=== PATIENT | female | born 1950 ===

== ENCOUNTER 2024-04-16 16:28 | Outpatient (REF) | payer MEDICARE, SELFPAY ==
[2024-04-16 13:48] LABS: Abs Immature Grans 0.13 10^3/uL; Absolute Basophil Count 0.06 10^3/uL; Absolute Eosinophil Count 0.21 10^3/uL; Absolute Lymphocyte Count 2.19 10^3/uL; Absolute Monocyte Count 0.76 10^3/uL; Absolute Neutrophil Count 10.51 10^3/uL; Basophils % 0.4 %; Eosinophils % 1.5 %; HGB 12.3 g/dL; Immature Grans % 0.9 %; Lymphocytes % 15.8 %; MCH 23.5 pg; MCHC 29.3 %; MCV 80 fL; MPV 9.2 fL; Monocytes % 5.5 %; Neutrophils % 75.9 %; RBC 5.24 10^6/uL; RDW 15.7 %; RDW-SD 45.1 fL; WBC 13.86 10^3/uL
[2024-04-16 13:51] LABS: Bilirubin Negative; Blood Negative; Clarity Clear; Glucose Negative; Ketones Negative; Leukocyte Esterase Negative; Nitrite Negative; Specific Gravity 1.015; pH 6.5
[2024-04-16 14:06] LABS: ALT 20 U/L; AST 15 U/L; Albumin 2.2 g/dL; Alkaline Phosphatase 173 U/L; Anion Gap 11.3 mmol/L; BUN 11 mg/dL; Bilirubin, Total 0.35 mg/dL; CO2 24.7 mmol/L; CREATININE 0.6 mg/dL; Chloride 98 mmol/L; Glucose 167 mg/dL; Magnesium 2.2 mg/dL; Potassium 5.4 mmol/L; Sodium 134 mmol/L; TSH 1.99 uIU/mL (0.36-3.74); Total Protein 6.9 g/dL
[2024-04-16 14:13] LABS: Platelet Count 826 10^3/uL
[2024-04-16 14:14] LABS: Diff Comment PLT Morph Reviewed; RBC Morphology Normal
== END 2024-04-16 16:29 | disposition home or self-care (01) ==
LOC: LBN 16:28
PROVIDERS: Visit Provider Nurse Practitioner Family
DX: C79.9 Secondary malignant neoplasm of unspecified site (principal); E83.52 Hypercalcemia; E83.42 Hypomagnesemia
CPT/HCPCS: 80053; 81003; 83735; 84443; 85025

== ENCOUNTER 2024-04-20 15:30 | Inpatient (IN) | payer MEDICARE, SELFPAY ==
[2024-04-20] VITALS (60 sets, daily range): BP systolic 117–160; BP diastolic 57–122; PULSE 88–126; RESP 15–33; TEMP 36–36.5; O2SAT 84–94
--- NOTE | 2024-04-20 15:45 | RT.EKG_ITS ---
APPROVED REPORT Exam: Resting ECG Reason for Exam: weakness Patient Location: E HR:120 bpm ECG Measurements Heart Rate 120 AXIS ME 116 P 59 QRSd 73 QRS 30 QT 286 T 48 QTc 404 Conclusion Sinus tachycardia...rate> 99 Ventricular premature complex...V complex w/ short R-R interval Low voltage, precordial leads...precordial leads <1.0mV no ST segment or T wave abnormalities to suggest occlusive NV
--- NOTE | 2024-04-20 16:15 | ED.GENADUL_ITS ---
Discharge Plan Discharge Details Chief Complaint: GenMedical Admit Date/Time: 04/20/24 22:08 Admit Provider: Jensen Dutton Attending Provider: Jensen Dutton Primary Care Provider: Unknown,Unknown ED Provider: Eva Starr General Date/Time Provider Initiated Documentation: 04/20/24 15:36 . [facility] Narrative: Dell is a 73year old female who presents to the emergency department today for evaluation of Shortness of breath on exertion x 2 weeks and nausea/vomiting x 4 days. Shortness of breath is accompanied by left-sided chest pain that has moved from her anterior rib cage down to her diaphragm area. She is accompanied by her daughter/caregiver Jeimy. Denies fever/chills, headache, dizziness, congestion, sore throat, cough, abdominal pain, change in bowel or bladder function, black/tarry stools. She is not on anticoagulation. 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 Former smoker. Daughter reports that she has had tachycardia for the last 3 weeks. She has follow-up with her care team on Saturday. Physical exam reassuring. Patient is alert and oriented, no acute distress. Easy work of breathing, lung sounds clear bilaterally. No cough. Tachycardia noted, heart rate in the 110s. Moist mucous membranes. Abdomen is soft, nondistended, nontender to palpation with normoactive bowel sounds. Radial pulses intact. D/dx includes but is not limited to: Occult infection such as pneumonia, metastases of known cancer, COPD, PE, gastritis, cardiac arrhythmia, viral illness such as COVID-19, electrolyte imbalance, dehydration. ACS less likely based on timeline. I independently interpreted the following tests: EKG reassuring, sinus tachycardia rate 120, no changes c/w acute ischemie. d-dimer very elevated at 1751. BNP slightly elevated at 462. CMP, lipase, and serial troponins (9, 10, 6) reassuring. CT remarkable for large L pleural effusion, bony mets to ribs and R iliac bone. While in the emergency department, Dell received her home pain medications for comfort. Consulted with Dr Rose , [facility] [place] [place] oncology. Recommends thoracentesis or pleuravax for comfort, with f/u on Sat as scheduled. Presented case to hospitalist Dr Dutton and Dr Hampton, [facility] general surgeon. They are agreeable with plan to admit for procedure tomorrow (likely 12:30 or 1 pm). Discussed findings and plan of care with patient and her daughter Jeimy; they a re agreeable Related Data Home Medications ?Medication ?Instructions ?Recorded ?Confirmed acetaminophen 325 mg tablet 325 mg PO Q8H PRN PRN 04/20/24 04/20/24 (Aminofen) albuterol sulfate 90 mcg/actuation 2 inh inhalation Q6H 04/20/24 04/20/24 breath activated powder inhaler calcium 600 mg (as 1 cap PO BID 04/20/24 04/20/24 carbonate)-vitamin D3 5 mcg (200 unit) capsule (Calcium 600 + D(3)) famotidine 40 mg tablet 40 mg PO QHS 04/20/24 04/20/24 fluticasone propionate 50 2 spray intranasal DAILY PRN 04/20/24 04/20/24 mcg/actuation nasal spray,suspension (24 Hour Allergy Relief) hydrocodone 5 mg-acetaminophen 325 1 tab PO BID 04/20/24 04/20/24 mg tablet magnesium oxide 400 mg PO BID 04/20/24 04/20/24 umeclidinium 62.5 mcg/actuation 1 inh inhalation DAILY 04/20/24 04/20/24 blister powder for inhalation (Incruse Ellipta) Allergies Allergy/AdvReac Type Severity Reaction Status Date / Time No Known Allergies Allergy Unverified 04/20/24 15:48 General Stated Complaint: GenMedical LINN: 3 Review of Systems Narrative: see HPI Exam Const General: cooperative, comfortable, no acute distress and well developed Nutritional Appearance: thin Orientation: alert and oriented x3 Chest Chest: normal inspection of the chest Resp Effort & Inspection: normal respiratory effort and able to speak in complete sentences Auscultation: clear to auscultation bilaterally Cardio Rate: tachycardic Rhythm: regular rhythm GI Inspection: normal to inspection Palpation: soft and nontender Course Vital Signs Vital signs: Vital Signs Temperature 36.5 C 04/20/24 15:36 Pulse 122 04/20/24 15:36 Respiratory Rate 25 04/20/24 15:36 Blood Pressure 117/67 04/20/24 15:36 Pulse Oximetry 93 04/20/24 15:36 Temperature 36.5 C 04/20/24 15:45 Temperature Source Temporal Artery Scan 04/20/24 15:45 Pulse 118 04/20/24 15:46 Pulse 117 04/20/24 15:46 Respiratory Rate 26 04/20/24 15:46 Respiratory Effort Normal, Non-Labored 04/20/24 15:50 Respiratory Depth Normal 04/20/24 15:50 Respiratory Pattern Normal 04/20/24 15:50 Blood Pressure 125/65 04/20/24 15:46 Blood Pressure Mean 87 04/20/24 15:46 Blood Pressure Position Supine 04/20/24 15:45 Pulse Oximetry 93 04/20/24 15:46 Oxygen Delivery Method Room Air 04/20/24 15:45 Oxygen Flow Rate 0 04/20/24 15:36 Pain Level 0 04/20/24 15:45 Medical Decision Making Quality:SDOH Health Related Social Needs: No Data to Display PFSH All Active Problems (Updated 04/20/24 @ 21:59 by Jensen Dutton) COPD (chronic obstructive pulmonary disease) (Chronic) Pleural effusion, left (Acute) 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 (Chronic) Medical History (Updated 04/20/24 @ 21:59 by Jensen Dutton) Tobacco abuse, in remission Social History Smoking/Tobacco Use Status: Former Tobacco Use Smoking risk assessment performed?: Yes Alcohol Intake: former Substance use type: does not use
[2024-04-20 16:37] LABS: HCT 37.1 %; HGB 11.2 g/dL; MCH 23.3 pg; MCHC 30.2 %; MCV 77 fL; RDW 15.7 %; RDW-SD 43.3 fL; WBC 14.99 10^3/uL
[2024-04-20 17:00] LABS: ALT 13 U/L; AST 15 U/L; Albumin 1.8 g/dL; Alkaline Phosphatase 130 U/L; Anion Gap 9.5 mmol/L; BUN 11 mg/dL; Bilirubin, Total 0.33 mg/dL; CO2 22.5 mmol/L; CREATININE 0.4 mg/dL; Calcium 10.1 mg/dL; Chloride 101 mmol/L; Glucose 119 mg/dL; NT-proBNP 462 pg/mL (<300); Potassium 4.3 mmol/L; Sodium 133 mmol/L; Total Protein 6.8 g/dL; Troponin I 9 ng/L
[2024-04-20 17:01] LABS: Lipase 44 U/L
[2024-04-20 17:09] LABS: D-Dimer 1751 ng/mlFEU
[2024-04-20 17:10] LABS: Platelet Count 795 10^3/uL
[2024-04-20 17:11] LABS: Absolute Basophil Count 0.15 10^3/uL; Absolute Lymphocyte Count 1.95 10^3/uL; Absolute Neutrophil Count 11.09 10^3/uL; Diff Comment Manual Differential
[2024-04-20 17:12] LABS: Hypochromasia 1+
[2024-04-20 17:35] LABS: COVID-19 PCR Negative; Influenza A PCR Negative; Influenza B PCR Negative; RSV PCR Negative; Source Nasopharynx
[2024-04-20] MEDS: Acetaminophen 325 MG TAB PO ×2 (17:52→20:30)
[2024-04-20 18:06] LABS: Troponin I 10 ng/L
[2024-04-20] MEDS: Omnipaque 350 MG/ML 100 ML BTL IJ (18:37)
[2024-04-20] MEDS: Normal Saline - Diluent 50 ML VIAL IJ (18:39)
--- NOTE | 2024-04-20 18:40 | DI.CT_ITS ---
Exam(s) CT CHEST PE ABD PELVIS W EXAM: CT CHEST PE ABD PELVIS W CLINICAL HISTORY: SOB with known cancer. not anticoagulated, N/V. TECHNIQUE: Imaging Protocol: Axial CT angiography was performed with multi-slice acquisition and mu lti-planar and/or 3D reconstructions. Computer aided detection (CAD) was utilized. CONTRAST MATERIAL: Intravenous: Omnipaque 350contrast volume:85 mL COMPARISON: No exams were available for comparison FINDINGS: The examination is limited due to patient motion artifact. CHEST: Tracheobronchial tree: Patent where visualized. No evidence of bronchiectasis. Pulmonary parenchyma: Centrilobular emphysematous changes are seen in the lungs. There are pulmonary nodule seen in the lungs. The largest is in the right upper lobe and measures 4 mm. There are nume caitlin pleural based masses seen in the left hemithorax. There is a large left pleural effusion which appears somewhat loculated. There is complete collapse of the left lower lobe. There are destructiv e changes seen of multiple left ribs including what is probably a pathologic fracture of the posterol ateral aspect of the left 7th rib. There is significant destructive changes seen at the anterior asp ect of the left 6th rib. Pulmonary Arteries: No evidence of filling defect to suggest pulmonary emboli. Mediastinum and Brittny: No dominant adenopathy or fluid collection. The esophagus is unremarkable. Ther e is a small hiatal hernia. Visualized thyroid gland: Unremarkable. Pleura: There is no right pleural effusion or right pneumothorax. No left pneumothorax. Heart: The heart is not dilated. No coronary artery calcifications are seen. No pericardial effusion. Aorta: Thoracic aorta non-dilated. No evidence of dissection. Atherosclerotic calcification is prese nt. Bones: Age-appropriate degenerative changes are present. Please see the above section under pulmonar y parenchyma. Soft tissues: Unremarkable. ABDOMEN: Liver: Normal density. No measurable mass. Portal, Superior Mesenteric, and Splenic Veins: Unremarkable. Gallbladder and Biliary Tract: No radiodense calculus or dilation. Pancreas: Normal density, no abnormal calcifications or inflammatory process. Spleen: Normal. Adrenals: There is nodularity of the adrenal glands bilaterally. Kidneys: Normal size, contour and axis. No radiodense stones or obstructive uropathy. There are simpl e cysts seen in the left kidney. There is a heterogeneously enhancing mass in the upper pole of the right kidney measuring 7.5 transverse by 7.5 AP by 7.0 cm craniocaudad. This is consistent with the patient's known renal carcinoma. Abdominal Aorta: Abdominal portion non-dilated. Atherosclerotic calcification is present. There is m arked stenosis of the right common iliac artery. Bowel: No obstruction or bowel wall thickening. Appendix is unremarkable. There is a moderate amount of stool in the colon. Peritoneal Cavity: No ascites, collection or mesenteric inflammatory response. No free air. Lymph Nodes: Within normal limits. Bones: Within normal limits for the patient's age. There is of bony slightly sclerotic metastasis in volving the lateral aspect of the right iliac bone. Soft Tissues: Unremarkable. PELVIS: Bladder: Symmetric distention, no gross wall thickening. Reproductive Organs: Unremarkable as visualized. Lymph Nodes: Within normal limits. Bones: Within normal limits. IMPRESSION: 1. No evidence pulmonary embolism, thoracic aortic dissection or aneurysm. 2. Extensive metastatic disease seen in the chest predominantly involving the left hemithorax. 3. Large left pleural effusion which show some loculation. 4. No acute abdominal or pelvic process. 5. 7.5 cm heterogeneously enhancing right renal mass consistent with renal carcinoma. 6. Osseous metastatic disease involving the right iliac bone. RADIATION DOSE DELIVERED: 429.08mGy.cm Total DLP DATA REPOSITORY: All CT scans at this facility are submitted to the National Radiology Data Registry (NRDR) Dose Index Registry (DIR) with the [employer] (ACR). RADIATION OPTIMIZATION: All CT scans at this facility use at least one of these dose optimization te chniques: automated exposure control; mA and/or kV adjustment per patient size (includes targeted exa ms where dose is matched to clinical indication); or iterative reconstruction.
[2024-04-20 19:51] LABS: Troponin I 6 ng/L (<or=51)
[2024-04-20] MEDS: HYDROcodone 5/Acetaminophen 325 TAB PO (20:23)
[2024-04-20] MEDS: Lidocaine 5% Patch 1 PATCH TP (20:31)
[2024-04-20] MEDS: Ondansetron 4 MG/2 ML VIAL IVP (20:58)
[2024-04-20 21:00] LABS: BE (Venous) 0 mmol/L (-2-3); HCO3 (Venous) 24 mmol/L (23-28); O2 Sat (Venous) 91 %; TCO2 (Venous) 22 mmol/L (24-29); pCO2 (Venous) 36 mmHg (41-51); pH (Venous) 7.43 (7.31-7.41); pO2 (Venous) 59 mmHg
--- NOTE | 2024-04-20 21:51 | W.PM.HP.N ---
Date of service: 04/20/24 Time of Service: 21:52 Assessment and Plan Assessment and plan (1) Pleural effusion, left: Start date: 04/20/24 Status: Acute Assessment and plan: This is a 73-year-old lady with recent diagnosis of stage IV renal cell carcinoma of the right kidney with metastases to lung and bone. She presents with increasing shortness of breath and large left pleural effusion. Surgery has been consulted and [facility] oncology is agreeable for patient to stay at this hospital with therapeutic thoracentesis planned for the morning. She will be n.p.o. after midnight. Symptom control overnight. Patient is a full code. Prognosis is poor. (2) 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: Status: Chronic Assessment and plan: Recent diagnosis but now being evaluated for treatment options with [facility] oncology. Complications of metastases to lung causing large left pleural effusion. (3) COPD (chronic obstructive pulmonary disease): Status: Chronic Assessment and plan: Stable and now complicated by pleural effusion with patient oxygenating well at rest. Continue inhaler therapy. O2 supplementation as needed. Qualifiers: COPD type: chronic bronchitis Chronic bronchitis type: simple Qualified Code(s): J41.0 - Simple chronic bronchitis History of Present Illness History of Present Illness Chief Complaint: Fast heart rate with dyspnea upon exertion, nausea with vomiting Narrative: This is a 73-year-old female patient who just recently moved up to the [facility] in [place] to be with her daughter having a recent diagnosis of stage IV renal cell carcinoma metastatic to lung and bone. This diagnosis was in March 2024 about 1 month ago and she was initially seen at [facility] and now is following at [facility] as per her PCPs advice. She is seeing [facility] oncology for intake and evaluation April 22, 2024. The patient presented to the ED with increasing shortness of breath and discomfort over her left chest and was very uncomfortable at the time I examined her. She was restless and having pain on oral hydrocodone at home. In the ED, evaluation revealed a large left pleural effusion with right renal mass and osseous as well as pulmonary metastases. There was no evidence of PE. Patient has had decreased appetite and had 7 pound weight loss already being very thin. She is having nausea. She also has with some pain with deep inspiration of the left side. She is not having retrosternal chest pain or radiation of her pain. She denies fever or cough. Dr. Hampton, general surgery was consulted and [facility] oncology was in agreement for the patient to be admitted overnight for observation and pain control with plan thoracentesis will be therapeutic to be performed in the morning. Patient hopefully will go home and follow-up as scheduled with [facility] oncology. She is a full code. Review of Systems Narrative: 13 point review of systems otherwise unrevealing or stable. PFSH All Active Problems (Updated 04/20/24 @ 21:59 by Jensen Dutton) COPD (chronic obstructive pulmonary disease) (Chronic) Pleural effusion, left (Acute) 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 (Chronic) Medical History (Updated 04/20/24 @ 21:59 by Jensen Dutton) Tobacco abuse, in remission Social History Smoking/Tobacco Use Status: Former Tobacco Use Smoking risk assessment performed?: Yes Alcohol Intake: former Substance use type: does not use Meds Allergies and Home Medications Allergies Allergy/AdvReac Type Severity Reaction Status Date / Time No Known Allergies Allergy Unverified 04/20/24 15:48 Home Medications ?Medication ?Instructions ?Recorded ?Confirmed ?Type acetaminophen 325 mg tablet 325 mg PO Q8H PRN PRN 04/20/24 04/20/24 History (Aminofen) albuterol sulfate 90 mcg/actuation 2 inh inhalation Q6H 04/20/24 04/20/24 History breath activated powder inhaler calcium 600 mg (as 1 cap PO BID 04/20/24 04/20/24 History carbonate)-vitamin D3 5 mcg (200 unit) capsule (Calcium 600 + D(3)) famotidine 40 mg tablet 40 mg PO QHS 04/20/24 04/20/24 History fluticasone propionate 50 2 spray intranasal DAILY PRN 04/20/24 04/20/24 History mcg/actuation nasal spray,suspension (24 Hour Allergy Relief) hydrocodone 5 mg-acetaminophen 325 1 tab PO BID 04/20/24 04/20/24 History mg tablet magnesium oxide 400 mg PO BID 04/20/24 04/20/24 History umeclidinium 62.5 mcg/actuation 1 inh inhalation DAILY 04/20/24 04/20/24 History blister powder for inhalation (Incruse Ellipta) Exam Narrative Exam Narrative: General: Patient appears appropriate for age, thin and almost cachectic with poor eye contact and in obvious pain. She is leaning onto her right side. She is tachypneic with any movement. She is alert and oriented x 3. In moderate distress as described. HEENT: Normocephalic, eyes with pupils equal and reactive to light symmetrically, extraocular movement intact and sclera anicteric. Oropharynx with dry mucosa. Neck: Supple without JVD. Back: Kyphotic without CVA tenderness. Lungs: Marked decreased aeration of the left hemithorax with bronchovesicular breath sounds and fair aeration over the right. No focalizing rales or rhonchi. No expiratory wheeze. No increased expiratory phase. Breast: Exam deferred. Heart: Regular rate and rhythm with no appreciable murmur or gallop. Abdomen: Scaphoid contour, soft and nontender to palpation with no palpable hepatosplenomegaly. No guarding or rebound. Bowel sounds positive all quadrants. Genitalia/rectal: Exam deferred. Skin: Normal color, rough texture with decreased turgor. Warm and dry. Extremities: Without clubbing, cyanosis or pitting edema. Fair capillary refill. Neuro: Cranial nerves II to XII grossly intact, no focalizing motor deficits or tremor. Psych: Flattened affect with depressed mood. Patient is anxious and in pain. No abnormal thought processes. Remote and recent memory grossly intact. Results Imaging Imaging Studies: CT CHEST PE ABD PELVIS W EXAM: CT CHEST PE ABD PELVIS W CLINICAL HISTORY: SOB with known cancer. not anticoagulated, N/V. COMPARISON: No exams were available for comparison FINDINGS: The examination is limited due to patient motion artifact. CHEST: Tracheobronchial tree: Patent where visualized. No evidence of bronchiectasis. Pulmonary parenchyma: Centrilobular emphysematous changes are seen in the lungs. There are pulmonary nodule seen in the lungs. The largest is in the right upper lobe and measures 4 mm. There are numerous pleural based masses seen in the left hemithorax. There is a large left pleural effusion which appears somewhat loculated. There is complete collapse of the left lower lobe. There are destructive changes seen of multiple left ribs including what is probably a pathologic fracture of the posterolateral aspect of the left 7th rib. There is significant destructive changes seen at the anterior aspect of the left 6th rib. Pulmonary Arteries: No evidence of filling defect to suggest pulmonary emboli. Mediastinum and Brittny: No dominant adenopathy or fluid collection. The esophagus is unremarkable. There is a small hiatal hernia. Visualized thyroid gland: Unremarkable. Pleura: There is no right pleural effusion or right pneumothorax. No left pneumothorax. Heart: The heart is not dilated. No coronary artery calcifications are seen. No pericardial effusion. Aorta: Thoracic aorta non-dilated. No evidence of dissection. Atherosclerotic calcification is present. Bones: Age-appropriate degenerative changes are present. Please see the above section under pulmonary parenchyma. Soft tissues: Unremarkable. ABDOMEN: Liver: Normal density. No measurable mass. Portal, Superior Mesenteric, and Splenic Veins: Unremarkable. Gallbladder and Biliary Tract: No radiodense calculus or dilation. Pancreas: Normal density, no abnormal calcifications or inflammatory process. Spleen: Normal. Adrenals: There is nodularity of the adrenal glands bilaterally. Kidneys: Normal size, contour and axis. No radiodense stones or obstructive uropathy. There are simple cysts seen in the left kidney. There is a heterogeneously enhancing mass in the upper pole of the right kidney measuring 7.5 transverse by 7.5 AP by 7.0 cm craniocaudad. This is consistent with the patient's known renal carcinoma. Abdominal Aorta: Abdominal portion non-dilated. Atherosclerotic calcification is present. There is marked stenosis of the right common iliac artery. Bowel: No obstruction or bowel wall thickening. Appendix is unremarkable. There is a moderate amount of stool in the colon. Peritoneal Cavity: No ascites, collection or mesenteric inflammatory response. No free air. Lymph Nodes: Within normal limits. Bones: Within normal limits for the patient's age. There is of bony slightly sclerotic metastasis involving the lateral aspect of the right iliac bone. Soft Tissues: Unremarkable. PELVIS: Bladder: Symmetric distention, no gross wall thickening. Reproductive Organs: Unremarkable as visualized. Lymph Nodes: Within normal limits. Bones: Within normal limits. IMPRESSION: 1. No evidence pulmonary embolism, thoracic aortic dissection or aneurysm. 2. Extensive metastatic disease seen in the chest predominantly involving the left hemithorax. 3. Large left pleural effusion which show some loculation. 4. No acute abdominal or pelvic process. 5. 7.5 cm heterogeneously enhancing right renal mass consistent with renal carcinoma. 6. Osseous metastatic disease involving the right iliac bone. Labs 04/21/24 06:15 04/21/24 06:15 Labs: Laboratory Results - last 24 hr 04/20/24 04/20/24 04/20/24 16:22 16:52 17:40 WBC 14.99 RBC 4.80 Hgb 11.2 Hct 37.1 MCV 77 MCH 23.3 MCHC 30.2 RDW 15.7 Plt Count 795 MPV Immature Gran % See Differential Neutrophils % 74.0 Lymphocytes % 13.0 Monocytes % 12.0 Eosinophils % 0.0 Basophils % 1.0 Nucleated RBC % 0.0 Absolute Neutrophils 11.09 Absolute Lymphocytes 1.95 Absolute Monocytes 1.80 Absolute Eosinophils 0.00 Absolute Basophils 0.15 RBC Morphology See Below Hypochromasia 1+ D-Dimer 1751 VBG pH VBG pCO2 VBG pO2 VBG HCO3 VBG Total CO2 VBG O2 Saturation VBG Base Excess Sodium 133 Potassium 4.3 Chloride 101 Carbon Dioxide 22.5 Anion Gap 9.5 BUN 11 Creatinine 0.4 Est GFR (CKD-EPI 2020) Not Applicable Glucose 119 Calcium 10.1 Magnesium 2.0 Total Bilirubin 0.33 AST 15 ALT 13 Alkaline Phosphatase 130 Troponin I 9 10 NT-Pro-B Natriuret Pep 462 H Total Protein 6.8 Albumin 1.8 Lipase 44 COVID-19 Source Nasopharynx SARS-CoV-2 (PCR) Negative Influenza Type A (PCR) Negative Influenza Type B (PCR) Negative RSV (PCR) Negative 04/20/24 04/20/24 19:20 20:50 WBC RBC Hgb Hct MCV MCH MCHC RDW Plt Count MPV Immature Gran % Neutrophils % Lymphocytes % Monocytes % Eosinophils % Basophils % Nucleated RBC % Absolute Neutrophils Absolute Lymphocytes Absolute Monocytes Absolute Eosinophils Absolute Basophils RBC Morphology Hypochromasia D-Dimer VBG pH 7.43 H VBG pCO2 36 L VBG pO2 59 VBG HCO3 24 VBG Total CO2 22 L VBG O2 Saturation 91 VBG Base Excess 0 Sodium Potassium Chloride Carbon Dioxide Anion Gap BUN Creatinine Est GFR (CKD-EPI 2020) Glucose Calcium Magnesium Total Bilirubin AST ALT Alkaline Phosphatase Troponin I 6 NT-Pro-B Natriuret Pep Total Protein Albumin Lipase COVID-19 Source SARS-CoV-2 (PCR) Influenza Type A (PCR) Influenza Type B (PCR) RSV (PCR) Last Vital Signs Temp 36.5 C 04/20/24 15:45 Pulse 115 H 04/20/24 18:01 Resp 31 H 04/20/24 20:20 BP 152/94 H 04/20/24 20:59 Pulse Ox 92 04/20/24 20:20 Time Spent Time spent with Patient: >75 minutes Time was spent: preparing to see the patient(eg.review tests), obtaining and/or reviewing separately otained hiistory, ordering medications,tests, procedures, referring, communicating with other health housekeeper caregiver, indepentently interpreting results, counseling the patient and care coordination
[2024-04-21] VITALS (17 sets, daily range): BP systolic 102–135; BP diastolic 59–78; PULSE 106–129; RESP 2–28; TEMP 34.9–36.7; O2SAT 90–98
--- NOTE | 2024-04-21 | DI.RAD_ITS ---
Exam(s) XR PORTABLE CHEST AP POST LINE EXAM: XR PORTABLE CHEST AP POST LINE CLINICAL HISTORY: s/p thoro TECHNIQUE: 2D digital imaging was performed. COMPARISON: CT CT CHEST PE ABD PELVIS W from 04/20/2024 FINDINGS: LUNGS: The right lung is clear. The patient is status post left thoracentesis with significant decrea se in size of the previously noted left pleural effusion. No pneumothorax. Large masses are again n oted along the left chest wall. HEART: Normal size. AORTA: Normal diameter. BONES: Unremarkable for age. Soft tissues: Unremarkable. IMPRESSION: Significant decrease in size of left pleural effusion status post thoracentesis. No pneumothorax. L arge left-sided pleural based masses. DATA REPOSITORY: RADIATION DOSE DELIVERED:
--- NOTE | 2024-04-21 00:08 | W.PC.ACHO ---
Registration Status: Primary Language: Preferred Language: ED Information & Data Chief Complaint GenMedical 04/20/24 16:20 Triage Note Patient presented to the ER 04/20/24 15:36 via Sim with SOB for months now and bone pain. Patient has a history of large basal cell carcinoma with metastasis. Patient state her pcp insisted that her coming to the ER. Patient reported decreased appetite and nausea since probably the ending of February Medical / Surgical History (Last Updated 04/20/24 @ 21:57 by Jensen Dutton) Tobacco abuse, in remission Most Recent Vital Signs Temperature 36 C L 04/20/24 23:26 Temperature Source Temporal Artery Scan 04/20/24 15:45 Pulse 118 H 04/20/24 23:26 Pulse Rhythm Regular 04/20/24 23:26 Pulse 122 H 04/20/24 21:50 Respiratory Rate 15 04/20/24 23:26 Respiratory Effort Short of Breath 04/20/24 23:26 Respiratory Depth Normal 04/20/24 23:26 Respiratory Pattern Normal 04/20/24 23:26 Blood Pressure 133/83 04/20/24 23:26 Blood Pressure Mean 97 04/20/24 21:45 Blood Pressure Position Supine 04/20/24 15:45 Pulse Oximetry 93 04/20/24 23:26 Oxygen Delivery Method Room Air 04/20/24 23:26 Oxygen Flow Rate 0 04/20/24 23:26 Pain Level 6 04/20/24 23:26 Allergies No Known Allergies Allergy (Unverified 04/20/24 15:48) Precautions Isolation Standard precaution 04/20/24 15:46 Active Medications Generic Name Dose Route Start Last Admin Trade Name Lilian PRN Reason Stop Dose Admin Famotidine 40 mg 04/20/24 23:45 04/21/24 00:04 Famotidine 20 Mg Tab PO Not Given HS KEE Sodium Chloride 0 ml 04/20/24 20:00 04/20/24 23:43 Normal Saline Flush 10 Ml Syr IVP Not Given BID KEE IV IV Catheter Type [Right Peripheral IV Antecubital] IV Catheter Type [Right Peripheral IV Forearm] IV Catheter Gauge [Right 18 Antecubital] IV Catheter Gauge [Right 20 Forearm] Diet Orders Category Date Time Status Nothing Per Oral [DIET] Nutrition 04/21/24 Breakfast Active Regular/Normal [DIET] Nutrition 04/20/24 Dinner Active Diagnostics 1104/20/24 04/20/24 Range/Units 05:35 20:50 19:20 WBC Pending 10^3/uL RBC Pending 10^6/uL Hgb Pending g/dL Hct Pending % MCV Pending fL MCH Pending pg MCHC Pending % RDW Pending % Plt Count Pending 10^3/uL MPV Pending fL Immature Gran % Neutrophils % % Lymphocytes % % Monocytes % % Eosinophils % % Basophils % % Nucleated RBC % % Absolute Neutrophils 10^3/uL Absolute Lymphocytes 10^3/uL Absolute Monocytes 10^3/uL Absolute Eosinophils 10^3/uL Absolute Basophils 10^3/uL RBC Morphology Hypochromasia D-Dimer ng/mlFEU VBG pH 7.43 H (7.31-7.41) VBG pCO2 36 L (41-51) mmHg VBG pO2 59 mmHg VBG HCO3 24 (23-28) mmol/L VBG Total CO2 22 L (24-29) mmol/L VBG O2 Saturation 91 % VBG Base Excess 0 (-2-3) mmol/L Sodium Pending mmol/L Potassium Pending mmol/L Chloride Pending mmol/L Carbon Dioxide Pending mmol/L Anion Gap Pending mmol/L BUN Pending mg/dL Creatinine Pending mg/dL Est GFR (CKD-EPI 2020) Pending Glucose Pending mg/dL Calcium Pending mg/dL Magnesium Pending mg/dL Total Bilirubin Pending mg/dL AST Pending U/L ALT Pending U/L Alkaline Phosphatase Pending U/L Troponin I 6 ng/L NT-Pro-B Natriuret Pep (<300) pg/mL Total Protein Pending g/dL Albumin Pending g/dL Lipase U/L COVID-19 Source SARS-CoV-2 (PCR) Influenza Type A (PCR) Influenza Type B (PCR) RSV (PCR) 04/20/24 04/20/24 04/20/24 Range/Units 17:40 16:52 16:22 WBC 14.99 10^3/uL RBC 4.80 10^6/uL Hgb 11.2 g/dL Hct 37.1 % MCV 77 fL MCH 23.3 pg MCHC 30.2 % RDW 15.7 % Plt Count 795 10^3/uL MPV fL Immature Gran % See Differential Neutrophils % 74.0 % Lymphocytes % 13.0 % Monocytes % 12.0 % Eosinophils % 0.0 % Basophils % 1.0 % Nucleated RBC % 0.0 % Absolute Neutrophils 11.09 10^3/uL Absolute Lymphocytes 1.95 10^3/uL Absolute Monocytes 1.80 10^3/uL Absolute Eosinophils 0.00 10^3/uL Absolute Basophils 0.15 10^3/uL RBC Morphology See Below Hypochromasia 1+ D-Dimer 1751 ng/mlFEU VBG pH (7.31-7.41) VBG pCO2 (41-51) mmHg VBG pO2 mmHg VBG HCO3 (23-28) mmol/L VBG Total CO2 (24-29) mmol/L VBG O2 Saturation % VBG Base Excess (-2-3) mmol/L Sodium 133 mmol/L Potassium 4.3 mmol/L Chloride 101 mmol/L Carbon Dioxide 22.5 mmol/L Anion Gap 9.5 mmol/L BUN 11 mg/dL Creatinine 0.4 mg/dL Est GFR (CKD-EPI 2020) Not Applicable Glucose 119 mg/dL Calcium 10.1 mg/dL Magnesium 2.0 mg/dL Total Bilirubin 0.33 mg/dL AST 15 U/L ALT 13 U/L Alkaline Phosphatase 130 U/L Troponin I 10 9 ng/L NT-Pro-B Natriuret Pep 462 H (<300) pg/mL Total Protein 6.8 g/dL Albumin 1.8 g/dL Lipase 44 U/L COVID-19 Source Nasopharynx SARS-CoV-2 (PCR) Negative Influenza Type A (PCR) Negative Influenza Type B (PCR) Negative RSV (PCR) Negative Intake and Output - 24 Hour Total 04/20/24 15:17 thru 04/20/24 23:26 Weight 45 kg Falls Risk Assessment History of Falls Previous History 04/20/24 23:26 Contributing Factors Unstable 04/20/24 23:26 Ambulatory Aids Independent 04/20/24 23:26 Tubes/Lines None 04/20/24 23:26 Gait Evaluation No gait disturbance 04/20/24 23:26 Cognition No cognitive impairment 04/20/24 23:26 Fall Total Score 18 04/20/24 23:26 Level of Risk Standard/Low Risk 04/20/24 23:26 Problems (Last Updated 04/20/24 @ 21:57 by Jensen Dutton) COPD (chronic obstructive pulmonary disease) (Chronic) Pleural effusion, left (Acute) 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 (Chronic) v v v v v v v v v Sending and/or Receiving Nurses: Please use comment section below to note any information pertinent to the patient hand-off not included above. Information / Comments: Pt is a+ox3, on tele, SR tach. 18 g RT AC. received zofran for nausea. Report received from: Renata Giron RN
[2024-04-21] MEDS: Acetaminophen 325 MG TAB PO ×2 (03:12→08:24)
[2024-04-21] MEDS: MORPHine 2 MG/ML SYR IVP ×2 (03:25→12:40)
[2024-04-21] MEDS: Normal Saline Flush 10 ML SYR IVP ×4 (03:25→20:19)
[2024-04-21] MEDS: Albuterol 2.5 MG/3 ML INH SOLN VIAL UPD (03:26)
[2024-04-21 06:28] LABS: HCT 34.2 % (36.0-46.0); HGB 10.1 g/dL (11.2-15.7); MCHC 29.5 % (32.0-36.0); MCV 78 fL (80-95); MPV 8.5 fL (8.0-11.0); Platelet Count 696 10^3/uL (130-400); RDW 15.6 % (11.7-14.6); RDW-SD 44.1 fL; WBC 13.21 10^3/uL (4.4-10.8)
[2024-04-21 06:49] LABS: ALT 13 U/L (14-59); AST 12 U/L (15-37); Albumin 1.6 g/dL (3.4-5.0); Alkaline Phosphatase 121 U/L (46-116); Anion Gap 6.6 mmol/L (3-11); BUN 9 mg/dL (7-18); CO2 25.4 mmol/L (21.0-32.0); CREATININE 0.4 mg/dL (0.55-1.02); Calcium 9.4 mg/dL (8.5-10.1); Chloride 102 mmol/L (98-107); Estimated GFR 105.09 (mL/min/1.73m2); Glucose 106 mg/dL (74-106); Magnesium 2.2 mg/dL (1.8-2.4); Potassium 4.4 mmol/L (3.5-5.1); Sodium 134 mmol/L (136-145)
[2024-04-21] MEDS: Albuterol/Ipratropium 3 ML UPD VIAL UPD ×2 (07:58→20:24)
[2024-04-21] MEDS: Umeclidinium 7 CAP INHALER IH (07:58)
[2024-04-21] MEDS: Magnesium Oxide 400 MG TAB PO ×2 (08:22→20:17)
[2024-04-21] MEDS: HYDROcodone 5/Acetaminophen 325 TAB PO ×3 (08:23→20:17)
[2024-04-21] MEDS: Calcium 600mg/Vit D 200U TAB 1 TAB PO ×2 (08:23→20:17)
[2024-04-21] MEDS: Ondansetron 4 MG/2 ML VIAL IVP ×2 (08:25→12:39)
[2024-04-21] MEDS: Patch Removal 1 EACH TP (08:31)
--- NOTE | 2024-04-21 08:51 | PDOC.CMIN ---
Date of service: 04/21/24 Time of Service: 08:51 Care Management Initial Assmt Initial Assessment Reason for Hospitalization: left pleural effusion Functional Status/Living Situation Patient Presentation: Dell was admitted yesterday due to increasing shortness of breath on exertion x 2 weeks, and nausea/vomiting x 4 days. She has a history of stage IV kidney cancer with mets to the lungs. She was found to have a large left pleural effusion. Dell was lying in bed, talking with her daughter, Jeimy, who was present, when CM met with her today. She looks frail, but was very pleasant and engaged well. Dell has been living with her daughter for a few months, moved from [place]. For the last few days, Dell has been sleeping on the living room couch, because she has been too weak to climb the stairs to the second floor where her bedroom and also a bathroom with a shower are located. She does have HH PT and RN, and says she has been working on her strength. Dell may have a thoracentesis today, but the plan is still unclear. Dell was able to eat some lunch today, which was an improvement over the last few days. Dell [place] [facility] [place] Both she and Jeimy feel it is imperative to be at that appt. CM notified the provider of this. Town of Residence: [place] Resides with: Child (Daughter Jeimy and her ) Significant Other/Family: Local (Jeimy and another daughter in [place]) Caregiver/Guardian: Jeimy Natural Supports: Jeimy Employment Status: Retired Instrumental Activities of Daily Living (ADLs): Requires support with Groceries and Transportation (has been independent until very recently) Physical Functioning/Mobility Assistive Device: none Advance Directives Advance Directives: Do you have an Advance Directive: N 04/20/24 23:23 AD On File at [facility]: N 04/20/24 15:40 Date Asked 04/20/24 04/20/24 15:40 AD Date Reviewed COLST On File at [facility] COLST Date Scanned Code Status Resuscitation Status Full Code Insurance Coverage/Financial Issues Insurance: [facility] Medicare replacement Care Team Visit Care Team Role Provider Type Unknown Unknown Primary Care Provider STAFF PHYSICIAN Kandi Hampton, DO Other Providers OSTEOPATHIC DOCTOR Eva Matthews Emergency Provider NURSE PRACTITIONER Jensen Dutton Admit Provider NON[facility] STAFF PHYSICIAN Attending Provider Discharge Potential Discharge Needs: PCP F/U Appt and Other ([place] [facility] Anticipated Barriers to Discharge: None Identified Patient/Family Education Needs: Review discharge instructions, discuss Ask Me Three Transportation: Private vehicle Plan: Anticipate that Dell will be discharged home with her daughter. She will f/u with oncology on 04/22 as previously scheduled and continue per her plan of care. CM will continue to follow. PFSH All Active Problems (Updated 04/20/24 @ 21:59 by Jensen Dutton) COPD (chronic obstructive pulmonary disease) (Chronic) Pleural effusion, left (Acute) 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 (Chronic) Medical History (Updated 04/20/24 @ 21:59 by Jensen Dutton) Tobacco abuse, in remission Social History Smoking/Tobacco Use Status: Former Tobacco Use Smoking risk assessment performed?: Yes Alcohol Intake: former Substance use type: does not use Readmission Within the Past 30 Days Yes or No: No SDOH(Care Management) Screening Will the Patient Participate in the Screening?: Yes Do you worry about having a steady place to live?: no In the past 12 months, have you had to go without electric, gas, oil or water in your home?: no Have you or anyone in your house had to go without enough food to eat?: no Has lack of transportation kept you from medical appointments or from doing things needed for daily living?: no Has anyone in your support network made you feel unsafe for any reason?: no Anticipated HH Services Anticipated HH Services at [facility], PT and RN.
[2024-04-21 13:36] LABS: Lab Add On Test DONE
[2024-04-21 13:41] LABS: Absolute Lymphocyte Count 1.07 10^3/uL (1.2-3.4); Absolute Monocyte Count 1.15 10^3/uL (0.1-0.8); Absolute Neutrophil Count 10.66 10^3/uL (1.2-6.7); Basophils % 0.8 %; Eosinophils % 0.8 %; Immature Grans % 0.8 %; Lymphocytes % 8.1 %; Monocytes % 8.7 %; Neutrophils % 80.8 %
[2024-04-21] MEDS: Sodium Bicarbonate 50 MEQ/50 ML VIAL (14:03)
--- NOTE | 2024-04-21 14:16 | PAPNONF_PTH ---
PATIENT: Dell Alcala LOC: U#:[id number] AGE/SX: 73/F ROOM: RE04/20/[address]: Jensen Dutton : 1950 BED: A DIS: 04/22/2024 SPEC #: [id number] RECD: 04/21/24 14:52 STATUS: MILLA REQ #: [id number] TORI: 04/21/24 14:[address]: Jensen Dutton [facility] Cytology RECD BY: Vanessa Chan ENTERED: 04/21/24 14:54 SP TYPE: MICHELL OG DR: Kandi Hampton Christopher Tissues: 1 - BODY FLUID CYTO(NOT S/U/N/EM)[facility] Procedures: BODY FLUID CYTO(NOT SPU/UR/NIP/ENDOM)[facility] Comments: [id number] (TOTAL VOLUME = 60 ml, SENT FRESH) (REFRIGERATED)
--- NOTE | 2024-04-21 14:46 | PHA.REVIEW2 ---
Pharmacy Admission Review Admission Clinical Review Admission Pharmacy Review: Pleural effusion, left (Acute) No Known Allergies Allergy (Unverified 04/20/24 15:48) Resuscitation Status Full Code Height 5 ft Weight 42.2 kg Pharmacy Admission Review Renal Dosing Renal Dosing: BUN 9 mg/dL (7-18) 04/21/24 06:15 Creatinine 0.4 mg/dL (0.55-1.02) L 04/21/24 06:15 Medications needing adjustments: Intervened (crcl = 33) List of meds needing interventions: adjusted famotidine from 40 mg daily to 20 mg daily Anticoagulation Anticoagulation: Hgb 10.1 g/dL (11.2-15.7) L 04/21/24 06:15 Hct 34.2 % (36.0-46.0) L 04/21/24 06:15 Plt Count 696 10^3/uL (130-400) H 04/21/24 06:15 Creatinine 0.4 mg/dL (0.55-1.02) L 04/21/24 06:15 DVT Prophylaxis: Reviewed (SCDs) Therapeutic Anticoagulation: N/A Opiate Usage Evaluate Pain Scale/Pains Meds: Reviewed (morphine 2 mg IV q2h prn ordered for air hunger, has used 2 doses since last night) Scheduled Bowel Reg ordered if on Opiates?: No (prn) Relevant Labs Relevant Labs: Sodium 134 mmol/L (136-145) L 04/21/24 06:15 Potassium 4.4 mmol/L (3.5-5.1) 04/21/24 06:15 Chloride 102 mmol/L (98-107) 04/21/24 06:15 Magnesium 2.2 mg/dL (1.8-2.4) 04/21/24 06:15 Electrolytes, C-Reactive P, ESR: Reviewed (albumin = 1.6) DM Control DM Control: Reviewed (no diabetes diagnosis) Cardiac Review Cardiac Review: Troponin I 6 ng/L (<or=51) 04/20/24 19:20 NT-Pro-B Natriuret Pep 462 pg/mL (<300) H 04/20/24 16:22 BP, HR, EF%: Reviewed QTc Review QTc: Reviewed (QTc = 404 04/21/24) List meds needing interventions: n/a IV to PO Switch IV Medications: Reviewed Home Meds Home Med List reviewed: Reviewed Relevent Home Meds Not ordered & why?: all meds on home med list ordered but no external fill history to confirm list Current Meds Current Medication Order Review: Reviewed
[2024-04-21 14:54] LABS: pH Body Fluid 7
[2024-04-21 14:57] LABS: Source: Pleural
[2024-04-21 15:06] LABS: Clarity Cloudy; Source Pleural
--- NOTE | 2024-04-21 15:27 | CHAPLAIN ---
Dell was in bed and her daughter, Maryanne, was visiting with her. I explained my role and offered support. Dell was pleasant and not interested in further conversation with me. 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 According to Care Management notes, Dell moved to the area recently, from [place], to live with Maryanne. Tomorrow she has an appointment at [facility] [place] with oncology that she very much wants to keep.
[2024-04-21 16:19] LABS: Mononuclear Cells 49 %; Polynuclear Cells 51 %
[2024-04-21 16:28] LABS: Nucleated Cells 217 uL (0)
--- NOTE | 2024-04-21 16:52 | W.PM.PROGNOT ---
Date of Service Date of service: 04/21/24 Time of Service: 16:52 Assessment and Plan Assessment and plan (1) Pleural effusion, left: Start date: 04/20/24 Status: Acute Assessment and plan: As per chest CT results: Pulmonary parenchyma: Centrilobular emphysematous changes are seen in the lungs. There are pulmonary nodule seen in the lungs. The largest is in the right upper lobe and measures 4 mm. There are numerous pleural based masses seen in the left hemithorax. There is a large left pleural effusion which appears somewhat loculated. There is complete collapse of the left lower lobe. There are destructive changes seen of multiple left ribs including what is probably a pathologic fracture of the posterolateral aspect of the left 7th rib. There is significant destructive changes seen at the anterior aspect of the left 6th rib. Surgical consult ordered and ongoing Thoracentesis completed today with improvement in breathing -Possibility for outpatient Pleurx placement Fluid sample sent to pathology (2) 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: Status: Chronic Assessment and plan: Oncology appointment scheduled for 04/22/2024 Upon discussion with patient and family they wish to stay overnight and be discharged from the hospital to go to this appointment in the morning Will observe overnight Pain management with hydrocodone as per home med regimen with additional as needed IV morphine. Patient has bowel management medicine ordered Intermittent nausea treated with ondansetron as needed Palliative care consultation ordered (3) COPD (chronic obstructive pulmonary disease): Status: Chronic Assessment and plan: Continue home medicine regimen with umeclidinium Discussed with Dr. Victoria Qualifiers: COPD type: chronic bronchitis Chronic bronchitis type: simple Qualified Code(s): J41.0 - Simple chronic bronchitis Subjective Subjective Patient reports: still having pain, voiding w/o difficulty, bowel movement, nausea, shortness of breath and afebrile; denies diarrhea, blood in stool or vomiting Exam Narrative Exam Narrative: Ill appearing female patient, looking older than age and cachectic. Alert and oriented to self and place; nonfocal S1-S2 no murmur, positive radial and pedal pulses Diminished breath sounds to left lung field up to axillary line, clear breath sounds to right upper lobes with diminished bases Abdomen is scaphoid, nontender, bowel sounds are present No CVA tenderness Moves all 4 extremities but general weakness noticed Objective Last Vital Signs Temp 36.4 C L 04/21/24 16:09 Pulse 124 H 11/12/24 16:09 Resp 20 04/21/24 16:09 BP 135/73 04/21/24 16:09 Pulse Ox 93 04/21/24 16:09 Laboratory Results - last 24 hr 04/20/24 04/20/24 04/20/24 16:22 16:52 17:40 WBC 14.99 RBC 4.80 Hgb 11.2 Hct 37.1 MCV 77 MCH 23.3 MCHC 30.2 RDW 15.7 Plt Count 795 MPV Immature Gran % See Differential Neutrophils % 74.0 Lymphocytes % 13.0 Monocytes % 12.0 Eosinophils % 0.0 Basophils % 1.0 Nucleated RBC % 0.0 Absolute Neutrophils 11.09 Absolute Lymphocytes 1.95 Absolute Monocytes 1.80 Absolute Eosinophils 0.00 Absolute Basophils 0.15 RBC Morphology See Below Hypochromasia 1+ D-Dimer 1751 VBG pH VBG pCO2 VBG pO2 VBG HCO3 VBG Total CO2 VBG O2 Saturation VBG Base Excess Sodium 133 Potassium 4.3 Chloride 101 Carbon Dioxide 22.5 Anion Gap 9.5 BUN 11 Creatinine 0.4 Est GFR (CKD-EPI 2020) Not Applicable Glucose 119 Calcium 10.1 Magnesium 2.0 Total Bilirubin 0.33 AST 15 ALT 13 Alkaline Phosphatase 130 Troponin I 9 10 NT-Pro-B Natriuret Pep 462 H Total Protein 6.8 Albumin 1.8 Lipase 44 Fluid Source Fluid Color Fluid Clarity Fluid pH Fluid WBC Fld Polynuclear WBCs % Fluid Mononuclear Cell COVID-19 Source Nasopharynx SARS-CoV-2 (PCR) Negative Influenza Type A (PCR) Negative Influenza Type B (PCR) Negative RSV (PCR) Negative Add-On Test Request 04/20/24 04/20/24 04/21/24 19:20 20:50 06:15 WBC 13.21 H RBC 4.40 Hgb 10.1 L Hct 34.2 L MCV 78 L MCH 23.0 L MCHC 29.5 L RDW 15.6 H Plt Count 696 H MPV 8.5 Immature Gran % 0.8 Neutrophils % 80.8 Lymphocytes % 8.1 Monocytes % 8.7 Eosinophils % 0.8 Basophils % 0.8 Nucleated RBC % Absolute Neutrophils 10.66 H Absolute Lymphocytes 1.07 L Absolute Monocytes 1.15 H Absolute Eosinophils 0.10 Absolute Basophils 0.10 RBC Morphology Hypochromasia D-Dimer VBG pH 7.43 H VBG pCO2 36 L VBG pO2 59 VBG HCO3 24 VBG Total CO2 22 L VBG O2 Saturation 91 VBG Base Excess 0 Sodium 134 L Potassium 4.4 Chloride 102 Carbon Dioxide 25.4 Anion Gap 6.6 BUN 9 Creatinine 0.4 L Est GFR (CKD-EPI 2020) 105.09 Glucose 106 Calcium 9.4 Magnesium 2.2 Total Bilirubin 0.30 AST 12 L ALT 13 L Alkaline Phosphatase 121 H Troponin I 6 NT-Pro-B Natriuret Pep Total Protein 6.0 L Albumin 1.6 L Lipase Fluid Source Fluid Color Fluid Clarity Fluid pH Fluid WBC Fld Polynuclear WBCs % Fluid Mononuclear Cell COVID-19 Source SARS-CoV-2 (PCR) Influenza Type A (PCR) Influenza Type B (PCR) RSV (PCR) Add-On Test Request 04/21/24 04/21/24 04/21/24 13:36 14:16 14:16 WBC RBC Hgb Hct MCV MCH MCHC RDW Plt Count MPV Immature Gran % Neutrophils % Lymphocytes % Monocytes % Eosinophils % Basophils % Nucleated RBC % Absolute Neutrophils Absolute Lymphocytes Absolute Monocytes Absolute Eosinophils Absolute Basophils RBC Morphology Hypochromasia D-Dimer VBG pH VBG pCO2 VBG pO2 VBG HCO3 VBG Total CO2 VBG O2 Saturation VBG Base Excess Sodium Potassium Chloride Carbon Dioxide Anion Gap BUN Creatinine Est GFR (CKD-EPI 2020) Glucose Calcium Magnesium Total Bilirubin AST ALT Alkaline Phosphatase Troponin I NT-Pro-B Natriuret Pep Total Protein Albumin Lipase Fluid Source Pleural Pleural Fluid Color Red Fluid Clarity Cloudy Fluid pH 7 Fluid WBC 217 Fld Polynuclear WBCs % 51 Fluid Mononuclear Cell 49 COVID-19 Source SARS-CoV-2 (PCR) Influenza Type A (PCR) Influenza Type B (PCR) RSV (PCR) Add-On Test Request DONE Time Spent with Patient Time Spent with Patient: >50 minutes Time was spent: preparing to see the patient(eg.review tests), obtaining and/or reviewing separately otained hiistory, ordering medications,tests, procedures, referring, communicating with other health home care physical therapist, indepentently interpreting results, counseling the patient and care coordination
--- NOTE | 2024-04-21 16:58 | W.PM.OP ---
Date of service: 04/21/24 Time of Service: 16:58 Operative Note Operative Note DATE OF PROCEDURE: 04/21/24 PRE-OP DIAGNOSIS: Malignant pleural effusion/stage IV metastatic renal cell cancer/pathologic rib fracture-left POST-OP DIAGNOSIS: same PROCEDURE: Thoracentesis SURGEON: Kandi Hampton ANESTHESIA TYPE: Local By Surgeon Refer to Anesthesia Record ESTIMATED BLOOD LOSS: 1 PATHOLOGY: other COMPLICATIONS: None Patient was transported to: same day Patient's condition: stable Procedure Description: REPORT OF OPERATION Operative Note Operative Note Pt is here today for thoracentesis for symptoms of shortness of breath.? Chest x-ray was reviewed prior to beginning the procedure.? Informed consent was obtained explaining risks and benefits of the procedure, including but not limited to bleeding, infection, pneumothorax, recurrence, complications of anesthesia, and other unforetold complications. Timeout is performed prior to beginning the procedure. ? PROCEDURE:? The patient is brought to the procedure room and placed in the seated position.? Ultrasound is used to localize the pocket on the left chest.? The area is marked and then prepped and draped in the usual sterile fashion using a ChloraPrep scrub solution.? 15 cc's of 1% Lidocaine is used to anesthetize the T10 interspace. ? The small chandler is made with a #11 blade.? The needle and catheter is then inserted over the top of the rib, aspirating as it is inserted.? The needle is then removed.? The catheter is then hooked up to the Vacutainer system and 2200 cc's of bloodyfluid is evacuated.? The catheter is removed; pressure is held.? Sterile compression dressing is applied. ? Checks x-ray shows resolution of the fluid and no pneumothorax.
--- NOTE | 2024-04-21 17:01 | W.SURGCON ---
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 She has a consult at oncology clinic at [facility] tomorrow. Given her functional status I do not think she is a good candidate for chemo. It would be palliative anyway. I recommend that she transfer to hospice. (2) Pleural effusion, left: Status: Deleted Assessment and plan: Centesis today. Risks of procedure include but not limited to: Bleeding/infection/pneumothorax/damage to lung/reaction to medication, not other on for pulm complications 45 mins spent in direct pt care and 45 in non face to face time (3) COPD (chronic obstructive pulmonary disease): Status: Chronic Qualifiers: COPD type: chronic bronchitis Chronic bronchitis type: simple Qualified Code(s): J41.0 - Simple chronic bronchitis (4) Tobacco abuse, in remission: (5) Malignant pleural effusion: Status: Acute (6) Pathologic fracture: Status: Acute (7) Protein-calorie malnutrition, severe: Status: Acute Assessment and plan: Nutrition consult (8) Ambulatory dysfunction: Status: Acute Assessment and plan: PT consult Patient is going to need home health and home PT (9) Cancer cachexia: Status: Acute History of Present Illness Narrative: Patient was admitted to [facility] through the ER on 04/20 complaining of shortness of breath and chest pain. Patient has a known history of renal cell cancer that was diagnosed back in [facility] on March 10. She has not started any chemo. It is unclear why. She has a outpatient hematology clinic consult scheduled with Dr. Bush tomorrow to discuss starting chemo. From reviewing her [facility] chart, she has not seen oncology previously and not She has not started treatment. Given the severity of her disease and with a recurrent malignant effusion and fracture of her lung, I do not think chemo is going to buy her any time. Also given her nutritional and functional state, I do not think she would be able to tolerate chemo. It would be my recommendation that she go into hospice. I do not think patient has a good understanding of her disease process. Patient is unable to give really any other clear history and most of the information is taken from the chart. She has an extensive history of COPD. She has a history of weakness/protein calorie malnutrition/impaired mobility. She still smokes. We have very little medical information on file and patient is not able to supply us with much information. CT 04/20/24 racheobronchial tree: Patent where visualized. No evidence of bronchiectasis. Pulmonary parenchyma: Centrilobular emphysematous changes are seen in the lungs. There are pulmonary nodule seen in the lungs. The largest is in the right upper lobe and measures 4 mm. There are numerous pleural based masses seen in the left hemithorax. There is a large left pleural effusion which appears somewhat loculated. There is complete collapse of the left lower lobe. There are destructive changes seen of multiple left ribs including what is probably a pathologic fracture of the posterolateral aspect of the left 7th rib. There is significant destructive changes seen at the anterior aspect of the left 6th rib. Pulmonary Arteries: No evidence of filling defect to suggest pulmonary emboli. Mediastinum and Brittny: No dominant adenopathy or fluid collection. The esophagus is unremarkable. There is a small hiatal hernia. Visualized thyroid gland: Unremarkable. Pleura: There is no right pleural effusion or right pneumothorax. No left pneumothorax. Heart: The heart is not dilated. No coronary artery calcifications are seen. No pericardial effusion. Aorta: Thoracic aorta non-dilated. No evidence of dissection. Atherosclerotic calcification is present. Bones: Age-appropriate degenerative changes are present. Please see the above section under pulmonary parenchyma. Soft tissues: Unremarkable. ABDOMEN: Liver: Normal density. No measurable mass. Portal, Superior Mesenteric, and Splenic Veins: Unremarkable. Gallbladder and Biliary Tract: No radiodense calculus or dilation. Pancreas: Normal density, no abnormal calcifications or inflammatory process. Spleen: Normal. Adrenals: There is nodularity of the adrenal glands bilaterally. Kidneys: Normal size, contour and axis. No radiodense stones or obstructive uropathy. There are simple cysts seen in the left kidney. There is a heterogeneously enhancing mass in the upper pole of the right kidney measuring 7.5 transverse by 7.5 AP by 7.0 cm craniocaudad. This is consistent with the patient's known renal carcinoma. Abdominal Aorta: Abdominal portion non-dilated. Atherosclerotic calcification is present. There is marked stenosis of the right common iliac artery. Bowel: No obstruction or bowel wall thickening. Appendix is unremarkable. There is a moderate amount of stool in the colon. Peritoneal Cavity: No ascites, collection or mesenteric inflammatory response. No free air. Lymph Nodes: Within normal limits. Bones: Within normal limits for the patient's age. There is of bony slightly sclerotic metastasis involving the lateral aspect of the right iliac bone. Soft Tissues: Unremarkable. PELVIS: Bladder: Symmetric distention, no gross wall thickening. Reproductive Organs: Unremarkable as visualized. Lymph Nodes: Within normal limits. Bones: Within normal limits. IMPRESSION: 1. No evidence pulmonary embolism, thoracic aortic dissection or aneurysm. 2. Extensive metastatic disease seen in the chest predominantly involving the left hemithorax. 3. Large left pleural effusion which show some loculation. 4. No acute abdominal or pelvic process. 5. 7.5 cm heterogeneously enhancing right renal mass consistent with renal carcinoma. 6. Osseous metastatic disease involving the right iliac bone. Review of Systems Unobtainable due to (Patient is not aware of much of her past medical history.) PFSH All Active Problems (Updated 04/21/24 @ 17:24 by Kandi Hampton DO) Cancer cachexia (Acute) Ambulatory dysfunction (Acute) Protein-calorie malnutrition, severe (Acute) Pathologic fracture (Acute) Left ribs Malignant pleural effusion (Acute) COPD (chronic obstructive pulmonary disease) (Chronic) 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 (Chronic) Stage IV. Mets to the lung and bones Medical History (Updated 04/21/24 @ 17:24 by Kandi Hampton DO) Tobacco abuse, in remission Social History Smoking/Tobacco Use Status: Former Tobacco Use Smoking risk assessment performed?: Yes Alcohol Intake: former Substance use type: does not use Exam Const General: frail appearing and ill appearing Nutritional Appearance: cachectic, malnourished and underweight Orientation: alert, awake and oriented to person Resp Effort & Inspection: normal respiratory effort and able to speak in complete sentences Other: No breath sounds left chest. Palpable rib fractures Cardio Rate: regular rate Rhythm: regular rhythm GI Other: Abdomen is soft and nontender Extrem General: muscle atrophy Results Last Vital Signs Temp 36.7 C 04/21/24 16:57 Pulse 126 H 04/21/24 16:57 Resp 20 04/21/24 16:57 BP 110/67 04/21/24 16:57 Pulse Ox 93 04/21/24 16:57 Labs 04/21/24 06:15 04/21/24 06:15 Labs: Laboratory Results - last 24 hr 04/20/24 04/20/24 04/20/24 16:22 16:52 17:40 WBC 14.99 RBC 4.80 Hgb 11.2 Hct 37.1 MCV 77 MCH 23.3 MCHC 30.2 RDW 15.7 Plt Count 795 MPV Immature Gran % See Differential Neutrophils % 74.0 Lymphocytes % 13.0 Monocytes % 12.0 Eosinophils % 0.0 Basophils % 1.0 Nucleated RBC % 0.0 Absolute Neutrophils 11.09 Absolute Lymphocytes 1.95 Absolute Monocytes 1.80 Absolute Eosinophils 0.00 Absolute Basophils 0.15 RBC Morphology See Below Hypochromasia 1+ D-Dimer 1751 VBG pH VBG pCO2 VBG pO2 VBG HCO3 VBG Total CO2 VBG O2 Saturation VBG Base Excess Sodium 133 Potassium 4.3 Chloride 101 Carbon Dioxide 22.5 Anion Gap 9.5 BUN 11 Creatinine 0.4 Est GFR (CKD-EPI 2020) Not Applicable Glucose 119 Calcium 10.1 Magnesium 2.0 Total Bilirubin 0.33 AST 15 ALT 13 Alkaline Phosphatase 130 Troponin I 9 10 NT-Pro-B Natriuret Pep 462 H Total Protein 6.8 Albumin 1.8 Lipase 44 Fluid Source Fluid Color Fluid Clarity Fluid pH Fluid WBC Fld Polynuclear WBCs % Fluid Mononuclear Cell COVID-19 Source Nasopharynx SARS-CoV-2 (PCR) Negative Influenza Type A (PCR) Negative Influenza Type B (PCR) Negative RSV (PCR) Negative Add-On Test Request 04/20/24 04/20/24 04/21/24 19:20 20:50 06:15 WBC 13.21 H RBC 4.40 Hgb 10.1 L Hct 34.2 L MCV 78 L MCH 23.0 L MCHC 29.5 L RDW 15.6 H Plt Count 696 H MPV 8.5 Immature Gran % 0.8 Neutrophils % 80.8 Lymphocytes % 8.1 Monocytes % 8.7 Eosinophils % 0.8 Basophils % 0.8 Nucleated RBC % Absolute Neutrophils 10.66 H Absolute Lymphocytes 1.07 L Absolute Monocytes 1.15 H Absolute Eosinophils 0.10 Absolute Basophils 0.10 RBC Morphology Hypochromasia D-Dimer VBG pH 7.43 H VBG pCO2 36 L VBG pO2 59 VBG HCO3 24 VBG Total CO2 22 L VBG O2 Saturation 91 VBG Base Excess 0 Sodium 134 L Potassium 4.4 Chloride 102 Carbon Dioxide 25.4 Anion Gap 6.6 BUN 9 Creatinine 0.4 L Est GFR (CKD-EPI 2020) 105.09 Glucose 106 Calcium 9.4 Magnesium 2.2 Total Bilirubin 0.30 AST 12 L ALT 13 L Alkaline Phosphatase 121 H Troponin I 6 NT-Pro-B Natriuret Pep Total Protein 6.0 L Albumin 1.6 L Lipase Fluid Source Fluid Color Fluid Clarity Fluid pH Fluid WBC Fld Polynuclear WBCs % Fluid Mononuclear Cell COVID-19 Source SARS-CoV-2 (PCR) Influenza Type A (PCR) Influenza Type B (PCR) RSV (PCR) Add-On Test Request 04/21/24 04/21/24 04/21/24 13:36 14:16 14:16 WBC RBC Hgb Hct MCV MCH MCHC RDW Plt Count MPV Immature Gran % Neutrophils % Lymphocytes % Monocytes % Eosinophils % Basophils % Nucleated RBC % Absolute Neutrophils Absolute Lymphocytes Absolute Monocytes Absolute Eosinophils Absolute Basophils RBC Morphology Hypochromasia D-Dimer VBG pH VBG pCO2 VBG pO2 VBG HCO3 VBG Total CO2 VBG O2 Saturation VBG Base Excess Sodium Potassium Chloride Carbon Dioxide Anion Gap BUN Creatinine Est GFR (CKD-EPI 2020) Glucose Calcium Magnesium Total Bilirubin AST ALT Alkaline Phosphatase Troponin I NT-Pro-B Natriuret Pep Total Protein Albumin Lipase Fluid Source Pleural Pleural Fluid Color Red Fluid Clarity Cloudy Fluid pH 7 Fluid WBC 217 Fld Polynuclear WBCs % 51 Fluid Mononuclear Cell 49 COVID-19 Source SARS-CoV-2 (PCR) Influenza Type A (PCR) Influenza Type B (PCR) RSV (PCR) Add-On Test Request DONE
[2024-04-21] MEDS: Famotidine 20 MG TAB PO (20:17)
[2024-04-21] MEDS: Lidocaine 5% Patch 1 PATCH TP (20:18)
[2024-04-21 22:33] LABS: Albumin, Body FLuid 1.6 g/dL (See Note); Glucose, Fluid 106 mg/dL (See Note)
[2024-04-22] VITALS (7 sets, daily range): BP systolic 109–115; BP diastolic 56–75; PULSE 113–125; RESP 2–22; TEMP 36.4–36.7; O2SAT 92–99
[2024-04-22] MEDS: Albuterol/Ipratropium 3 ML UPD VIAL UPD ×2 (02:00→08:10)
[2024-04-22] MEDS: HYDROcodone 5/Acetaminophen 325 TAB PO ×2 (06:26→08:03)
[2024-04-22 07:31] LABS: Absolute Basophil Count 0.06 10^3/uL (0.0-0.2); Absolute Lymphocyte Count 0.99 10^3/uL (1.2-3.4); Absolute Monocyte Count 1.05 10^3/uL (0.1-0.8); Absolute Neutrophil Count 12.17 10^3/uL (1.2-6.7); Basophils % 0.4 %; Eosinophils % 1.4 %; HCT 35.8 % (36.0-46.0); HGB 10.5 g/dL (11.2-15.7); Immature Grans % 0.7 %; Lymphocytes % 6.8 %; MCHC 29.3 % (32.0-36.0); MCV 78 fL (80-95); MPV 9.2 fL (8.0-11.0); Monocytes % 7.2 %; Neutrophils % 83.5 %; RBC 4.57 10^6/uL (3.93-5.22); RDW 15.9 % (11.7-14.6); RDW-SD 45.1 fL; WBC 14.58 10^3/uL (4.4-10.8)
[2024-04-22 07:49] LABS: Anion Gap 10.1 mmol/L (3-11); BUN 12 mg/dL (7-18); CO2 23.9 mmol/L (21.0-32.0); CREATININE 0.5 mg/dL (0.55-1.02); Calcium 10.3 mg/dL (8.5-10.1); Chloride 101 mmol/L (98-107); Estimated GFR 99.59 (mL/min/1.73m2); Glucose 108 mg/dL (74-106); Potassium 4.5 mmol/L (3.5-5.1); Sodium 135 mmol/L (136-145)
[2024-04-22] MEDS: Calcium 600mg/Vit D 200U TAB 1 TAB PO (08:03)
[2024-04-22] MEDS: Magnesium Oxide 400 MG TAB PO (08:03)
[2024-04-22] MEDS: Ondansetron 4 MG/2 ML VIAL IVP (08:04)
[2024-04-22] MEDS: Normal Saline Flush 10 ML SYR IVP (08:05)
[2024-04-22] MEDS: Umeclidinium 7 CAP INHALER IH (08:10)
[2024-04-22 08:27] LABS: Platelet Count 798 10^3/uL (130-400)
--- NOTE | 2024-04-22 08:38 | PDOC.CMDIS ---
Date of service: 04/22/24 Time of Service: 08:42 LACE Index Scoring Tool Questions: Length of Stay (in days): 1 Was the patient admitted via the E.D.?: Yes Comorbidities: Chronic Pulmonary Disease, Liver or Renal Disease and Metastatic Solid Tumor E.D. Visits: 1 Answers: Total Score: 10 Risk of Readmission: High Risk Care Management Discharge Plan Reason for Hospitalization: pleural effusion Discharge Plan: Dell is discharged home today with her daughter Jeimy. They will head immediately to [facility] where Dell has her intake appointment with her new oncologist. Dell will also f/u with her PCP and continue per her plan of care. She will have new orders for nausea medication, and a resumption of her HH RN and PT. Patient/Family Education Needs: Review of discharge instructions, activity, limitations, f/u plan and discuss Ask me 3. Services Needed at Discharge: Home Health Care Services (resumption of HH RN and PT) SDOH Health Related Social Needs: No Data to Display
--- NOTE | 2024-04-22 08:53 | W.PM.DS.N ---
Date of service: 04/22/24 Time of Service: 08:53 DS: Diagnosis Discharge Diagnosis (1) 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: Status: Chronic (2) Pleural effusion, left: Status: Deleted (3) COPD (chronic obstructive pulmonary disease): Status: Chronic (4) Tobacco abuse, in remission: (5) Malignant pleural effusion: Status: Acute (6) Pathologic fracture: Status: Acute (7) Protein-calorie malnutrition, severe: Status: Acute (8) Ambulatory dysfunction: Status: Acute (9) Cancer cachexia: Status: Acute Discharge Plan Disposition Patient Disposition: Home Condition: Stable Discharge Details Reason For Visit: Left pleural effusion secondary to metastatic manuel Admit Date/Time: 04/20/24 22:08 Admit Provider: Jensen Dutton Attending Provider: Jensen Dutton Primary Care Provider: Maurizio Alfaro Hospital Course Hospital Course: 73 yo F with COPD and recently diagnosed renal cell carcinoma metastatic to bone and lungs who was admitted with shortness of breath associated with a large left malignant pleural effusion. She underwent ultrasound guided thoracentesis by Dr. Hampton from surgery without complications, which resulted in significant improvement in her symptoms and improvement of her symptoms and her chest x-ray. Initial fluid analysis showed WBC but no bacteria. She was discharged the following day with plan for her family to take her directly to her oncology appointment to begin therapy for her RCC. Ondansatron helped with nausea, ODT version sent to pharmacy for prn use. Senna/docusate recommended to maintain bowel function with oral opioids for cancer related pain. Her calcium was slightly high related to her malignancy, so it was recommended to stop calcium supplementation for now. Home Meds and New Rx's Prescriptions: New ondansetron 4 mg tablet,disintegrating 4 mg PO Q8H PRNQty: 30 0RF sennosides-docusate sodium [Senna with Docusate Sodium] 8.6-50 mg tablet 1 tab-cap PO BID Qty: 60 2RF Rx Instructions: to avoid constipation with opiate pain medication Continued acetaminophen [Aminofen] 325 mg tablet 325 mg PO Q8H PRN PRN Patient Comments: max dose 3000mg magnesium oxide 400 mg magnesium capsule 400 mg PO BID famotidine 40 mg tablet 40 mg PO QHS fluticasone propionate [24 Hour Allergy Relief] 50 mcg/actuation spray,suspension 2 spray intranasal DAILY PRN Rx Instructions: administer into each nostril Incruse Ellipta 62.5 mcg/actuation blister with device 1 inh inhalation DAILY albuterol sulfate 90 mcg/actuation aerosol powdr breath activated 2 inh inhalation Q6H hydrocodone-acetaminophen 5-325 mg tablet 1 tab PO BID Discontinued Calcium 600 + D(3) 600 mg-5 mcg (200 unit) capsule 1 cap PO BID Discharge Instructions Instructions: Pleural effusion - Discharge instructions Additional Instructions: Follow up with oncology as planned. Good luck with your treatment We sent the dissolvable [id number] ondansatron to your pharmacy to use for nausea (AKA Zofran). We also recommended a gentle laxative/stool softener combination to take while taking hydrocodone to avoid contipation. We recommend you stop the calcium supplement for now because your calcium is high due to the cancer. . Activity:: Activity as Tolerated Equipment/Supplies:: No Equipment Needed Diet:: As Tolerated Discharge Orders Discharge Orders: Discharge Order (Routine); Ordered 04/22/24 Ordered By: Lasha Victoria DS: Summary Time Spent with Patient providing and/or coordinating discharge services: Greater than 30 minutes Status at Discharge Functional status at discharge: uses cane/walker Overall status at discharge: patient is not back to baseline Mental Status: mental status grossly normal Speech and Movement: speech and movement normal Mood: congruent mood Affect: normal affect Quality:SDOH Health Related Social Needs: No Data to Display Exam Narrative Exam Narrative: Cachectic appearing female patient, alert and oriented, sitting up in chair eating breakfast. Alert and oriented to self and place; nonfocal RRR, nl S1-S2 no murmur Improved breath sounds in left lung field, now just slightly diminished in base. no wheeze or rales Abdomen is scaphoid, nontender, bowel sounds are present ext: non-tender, no edema Psych Mental Status: mental status grossly normal Speech and Movement: speech and movement normal Mood: congruent mood Affect: normal affect DS: Data Vitals/I&O Vitals and I&O: Vital Signs Temperature 36.4 C L 04/22/24 07:43 Temperature Source Tympanic 04/22/24 07:43 Pulse 124 H 04/22/24 08:18 Pulse Rhythm Regular 04/20/24 23:26 Pulse 122 H 04/20/24 21:50 Respiratory Rate 21 11/13/24 08:18 Respiratory Effort Short of Breath 04/20/24 23:26 Respiratory Depth Normal 04/20/24 23:26 Respiratory Pattern Normal 04/20/24 23:26 Blood Pressure 110/75 04/22/24 07:43 Blood Pressure Mean 97 04/20/24 21:45 Blood Pressure Position Supine 04/20/24 15:45 Pulse Oximetry 96 04/22/24 08:18 Oxygen Delivery Method Room Air 04/22/24 08:10 Oxygen Flow Rate 0 04/22/24 08:10 Pain Level 7 04/22/24 06:26 Comment RN notified. 04/22/24 07:43 Intake & Output 04/21/24 04/21/24 04/22/24 11:59 23:59 11:59 Intake Total 10 / 270 260 / 270 Output Total 100 / 100 Balance -90 / 170 260 / 170 Weight 42.2 kg Intake: IV 10 20 / 30 Oral 240 / 240 Output: Urine 100 / 100 Other: Urine Color Straw Yellow Yellow Urine Appearance Clear Clear Cloudy Urine Odor Normal Normal Comment unclear amount, mixed with toilet paper. approximately 150 ml. urine is very concentrated Data Completed and Pending Labs on day of discharge: Labs from last 24 hours 04/22/24 04/21/24 04/21/24 06:20 14:16 14:16 WBC 14.58 H RBC 4.57 Hgb 10.5 L Hct 35.8 L MCV 78 L MCH 23.0 L MCHC 29.3 L RDW 15.9 H Plt Count 798 H* MPV 9.2 Immature Gran % 0.7 Neutrophils % 83.5 Lymphocytes % 6.8 Monocytes % 7.2 Eosinophils % 1.4 Basophils % 0.4 Nucleated RBC % 0.0 Absolute Neutrophils 12.17 H Absolute Lymphocytes 0.99 L Absolute Monocytes 1.05 H Absolute Eosinophils 0.20 Absolute Basophils 0.06 Sodium 135 L Potassium 4.5 Chloride 101 Carbon Dioxide 23.9 Anion Gap 10.1 BUN 12 Creatinine 0.5 L Est GFR (CKD-EPI 2020) 99.59 Glucose 108 H Calcium 10.3 H Fluid Source Pleural Pleural Fluid Color Red Fluid Clarity Cloudy Fluid pH 7 Fluid WBC 217 Fld Polynuclear WBCs % 51 Fluid Mononuclear Cell 49 Fluid Glucose Pending Fluid Albumin Pending Path Cons Comment SEE COMMENT Add-On Test Request 04/21/24 04/21/24 13:36 06:15 WBC RBC Hgb Hct MCV MCH MCHC RDW Plt Count MPV Immature Gran % 0.8 Neutrophils % 80.8 Lymphocytes % 8.1 Monocytes % 8.7 Eosinophils % 0.8 Basophils % 0.8 Nucleated RBC % Absolute Neutrophils 10.66 H Absolute Lymphocytes 1.07 L Absolute Monocytes 1.15 H Absolute Eosinophils 0.10 Absolute Basophils 0.10 Sodium Potassium Chloride Carbon Dioxide Anion Gap BUN Creatinine Est GFR (CKD-EPI 2020) Glucose Calcium Fluid Source Fluid Color Fluid Clarity Fluid pH Fluid WBC Fld Polynuclear WBCs % Fluid Mononuclear Cell Fluid Glucose Fluid Albumin Path Cons Comment Add-On Test Request DONE 04/21/24 14:16 Thoracentesis Body Fluid Culture - Pending Preliminary micro results at discharge 04/21/24 14:16 Body Fluid Culture - Pending Thoracentesis PFSH All Active Problems (Updated 04/21/24 @ 17:24 by Kandi Hampton DO) Cancer cachexia (Acute) Ambulatory dysfunction (Acute) Protein-calorie malnutrition, severe (Acute) Pathologic fracture (Acute) Left ribs Malignant pleural effusion (Acute) COPD (chronic obstructive pulmonary disease) (Chronic) 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 (Chronic) Stage IV. Mets to the lung and bones Medical History (Updated 04/21/24 @ 17:24 by Kandi Hampton DO) Tobacco abuse, in remission Social History Smoking/Tobacco Use Status: Former Tobacco Use Smoking risk assessment performed?: Yes Alcohol Intake: former Substance use type: does not use Time Spent with Patient Time Spent with Patient: <45 minutes Time was spent: preparing to see the patient(eg.review tests), obtaining and/or reviewing separately otained hiistory, referring, communicating with other health care support representative, indepentently interpreting results, counseling the patient and care coordination
[2024-04-22] MEDS: Patch Removal 1 EACH TP (10:14)
--- NOTE | 2024-04-22 10:45 | NT_ITS ---
PT Notes Visit Reasons: Left pleural effusion secondary to metastatic manuel Patient was discharged to [facility] today. No skilled PT services provided for patient during this episode of care.
--- NOTE | 2024-04-22 11:29 | W.NUTRFU ---
Date of service: 04/22/24 Time of Service: 11:29 Nutrition Note NOTE: nutrition consult put in last night due to weight concerns related to cancer. Pt was discharged this morning so unable to meet with her. Did call and leave voicemail that we can discuss nutrition needs over the phone or get a referral if desired to work together in the outpatient setting. Will await pt response Time Spent in Nutritional Counseling and Treatment: 0
--- NOTE | 2024-04-30 17:00 | W.PM.PROGNOT ---
Date of Service Date of service: 04/30/24 Time of Service: 17:00 Objective Last Vital Signs Temp 36.4 C L 04/22/24 07:43 Pulse 124 H 04/22/24 08:18 Resp 21 04/22/24 08:18 BP 110/75 04/22/24 07:43 Pulse Ox 96 04/22/24 08:18
== END 2024-04-22 09:43 | disposition home health service (06) | DRG 686 ==
LOC: ER 18:11 → MS 23:23
PROVIDERS: Nurse Practitioner Acute Care; Surgery; Admitting Provider Family Medicine; Emergency Provider Nurse Practitioner Family; PCP Nurse Practitioner Family; Visit Provider Family Medicine
PROC: 0W9B3ZZ Drainage of Left Pleural Cavity, Percutaneous Approach (ICD-10-PCS; CPT 32554; principal; 2024-04-21 13:00)
DX: E43 Unspecified severe protein-calorie malnutrition (principal); C64.1 Malignant neoplasm of right kidney, except renal pelvis; J91.0 Malignant pleural effusion; M84.58XA Pathological fracture in neoplastic disease, other specified site, initial encounter for fracture; C79.51 Secondary malignant neoplasm of bone; C78.02 Secondary malignant neoplasm of left lung; Z68.1 Body mass index [BMI] 19.9 or less, adult; J41.0 Simple chronic bronchitis; R26.2 Difficulty in walking, not elsewhere classified; E88.A Wasting disease (syndrome) due to underlying condition
CPT/HCPCS: 32554; 00123; 36415; 71045; 71275; 74177; 80048; 80053; 82042; 82805; 83690; 85027; 87637; 93005; 94640; 96374; 99222; 99285; 81373; 83735; 83880; 83986; 84484; 85007; 85025; 85379; 87070; 87205; 88104; 89051; 93010; 94664; 94760; 99223; 99233; 99239; J2270; J2405; J3490; J7613; J7620

== ENCOUNTER 2024-05-01 11:57 | Day surgery (SDC) | payer MEDICARE, SELFPAY ==
--- NOTE | 2024-05-01 | DI.RAD_ITS ---
Exam(s) XR PORTABLE CHEST AP EXAM: XR PORTABLE CHEST AP CLINICAL HISTORY: s/p attempted placement of PleurX TECHNIQUE: 2D digital imaging was performed. COMPARISON: No exams were available for comparison FINDINGS: Exam is limited due to under penetration. The retrocardiac area cannot be evaluated. LUNGS: The right lung is clear. There has been mild interval accumulation of left-sided pleural flui d. Multiple masses again noted along the left chest wall. HEART: Normal size. AORTA: Normal diameter. BONES: Scoliosis and degenerative changes. Soft tissues: Unremarkable. IMPRESSION: Small left pleural effusion, increasing from prior. Lobulated pleural based left-sided chest masses again noted. DATA REPOSITORY: RADIATION DOSE DELIVERED:
[2024-05-01 12:56] VITALS: BP 114/72; PULSE 121; RESP 18; TEMP 36.1; O2SAT 92
--- NOTE | 2024-05-01 13:21 | ANES.PREOP_ITS ---
General Info Date of Service Date Performed: 05/01/24 Height: 5 ft Weight: 39.4 kg Body Mass Index (BMI): 16.9 Surgical Procedure: Operation Date: 05/01/24 13:10 Proposed Procedure Side Surgeon p Pleurx Catheter Placement Left Kandi Hampton, Meds Allergies and Home Medications Allergies Allergy/AdvReac Type Severity Reaction Status Date / Time No Known Allergies Allergy Unverified 05/01/24 12:48 Home Medication ?Medication ?Instructions ?Recorded acetaminophen 325 mg tablet 325 mg PO Q8H PRN PRN 04/20/24 (Aminofen) albuterol sulfate 90 mcg/actuation 2 inh inhalation Q6H 04/20/24 breath activated powder inhaler famotidine 40 mg tablet 40 mg PO QHS 04/20/24 fluticasone propionate 50 2 spray intranasal DAILY PRN 04/20/24 mcg/actuation nasal spray,suspension (24 Hour Allergy Relief) hydrocodone 5 mg-acetaminophen 325 1 tab PO BID 04/20/24 mg tablet magnesium oxide 400 mg PO BID 04/20/24 umeclidinium 62.5 mcg/actuation 1 inh inhalation DAILY 04/20/24 blister powder for inhalation (Incruse Ellipta) ondansetron 4 mg disintegrating 4 mg PO Q8H PRN #30 tabs 04/22/24 tablet sennosides 8.6 mg-docusate sodium 1 tab-cap PO BID #60 tabs 04/22/24 50 mg tablet (Senna with Docusate Sodium) morphine concentrate 100 mg/5 mL 5 - 10 mg (0.25 - 0.5 mL) PO Q1H 04/30/24 (20 mg/mL) oral solution PRN PRN SOB or pain #30 mL acetaminophen 650 mg rectal 650 mg ME Q6H PRN fever, mild pain 05/01/24 suppository #6 supp bisacodyl 10 mg rectal suppository 10 mg ME daily PRN constipation #2 05/01/24 (Dulcolax (bisacodyl)) supp haloperidol lactate 2 mg/mL oral 1 mg (0.5 mL) PO Q6H PRN agitation 05/01/24 concentrate #15 mL hyoscyamine sulfate 0.125 mg 0.125 - 0.25 mg (1 - 2 x 0.125 mg) 05/01/24 disintegrating tablet PO Q4H PRN secretions #24 tabs lorazepam 1 mg tablet 1 mg PO Q4H PRN anxiety, ANDREWS or 05/01/24 nausea #6 tabs morphine concentrate 100 mg/5 mL 5 - 20 mg (0.25 - 1 mL) PO Q1H PRN 05/01/24 (20 mg/mL) oral solution PRN moderate to severe pain or shortness of breath #30 mL prochlorperazine maleate 10 mg 10 mg PO Q6H PRN nausea and 05/01/24 tablet vomiting #6 tabs Current Visit Medications: Current Medications Generic Name Dose Route Start Last Admin Trade Name Freq PRN Reason Stop Dose Admin Cefazolin Sodium/Dextrose 1 gm in 50 mls @ 100 mls/hr 05/01/24 08:40 Ancef Duplex IVPB 05/01/24 23:59 PREOP KEE IV Miscellaneous Supplies 1 each 05/01/24 06:00 Iv Access IV 05/01/24 23:59 DIRECTED KEE Sodium Chloride 0 ml 05/01/24 06:00 Normal Saline Flush 10 Ml Syr IV 05/01/24 23:59 PRN PRN Sodium Chloride 0 ml 05/01/24 06:00 Normal Saline 10 Ml Vial IJ 05/01/24 23:59 DIRECTED PRN Sterile Water 0 ml 05/01/24 06:00 Water,Injection,Sterile 10 Ml Vial IJ 05/01/24 23:59 DIRECTED PRN PFSH Active Problems Active Problems: Problem Status Onset Code Cancer cachexia Acute R64 Ambulatory dysfunction Acute R26.2 Protein-calorie malnutrition, severe Acute E43 Pathologic fracture Acute M84.40XA Malignant pleural effusion Acute J91.0 COPD (chronic obstructive pulmonary disease) Chronic J44.9 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 Chronic C64.1 Medical History Medical History Tobacco abuse, in remission Tobacco Smoking/Tobacco Use Status: Former Tobacco Use Alcohol Alcohol Intake: former Substance Use Substance use type: does not use Vital Signs and Lab Results Vital Signs Most Recent Vital Signs in EMR: Most Recent Vital Signs Temp Pulse Resp BP Pulse Ox 36.1 C L 121 H 18 114/72 92 05/01/24 12:56 05/01/24 12:56 05/01/24 12:56 05/01/24 12:56 05/01/24 12:56 Lab Results Blood Type / Crossmatch: No Data to Display Complete Blood Count: White Blood Count 14.58 10^3/uL (4.4-10.8) H 04/22/24 06:20 Red Blood Count 4.57 10^6/uL (3.93-5.22) 04/22/24 06:20 Hemoglobin 10.5 g/dL (11.2-15.7) L 04/22/24 06:20 Hematocrit 35.8 % (36.0-46.0) L 04/22/24 06:20 Platelet Count 798 10^3/uL (130-400) H* 04/22/24 06:20 Complete Metabolic Panel: Sodium 135 mmol/L (136-145) L 04/22/24 06:20 Potassium 4.5 mmol/L (3.5-5.1) 04/22/24 06:20 Chloride 101 mmol/L (98-107) 04/22/24 06:20 Carbon Dioxide 23.9 mmol/L (21.0-32.0) 04/22/24 06:20 BUN 12 mg/dL (7-18) 04/22/24 06:20 Creatinine 0.5 mg/dL (0.55-1.02) L 04/22/24 06:20 Est GFR (CKD-EPI 2020) 99.59 (mL/min/1.73m2) 04/22/24 06:20 Magnesium 2.2 mg/dL (1.8-2.4) 04/21/24 06:15 Calcium 10.3 mg/dL (8.5-10.1) H 04/22/24 06:20 Albumin 1.6 g/dL (3.4-5.0) L 04/21/24 06:15 Glucose 108 mg/dL (74-106) H 04/22/24 06:20 Liver Function Panel: Alanine Aminotransferase (ALT/SGPT) 13 U/L (14-59) L 04/21/24 0 6:15 Aspartate Amino Transf (AST/SGOT) 12 U/L (15-37) L 04/21/24 06: 15 Coagulation Panel: D-Dimer 1751 ng/mlFEU 04/20/24 16:22 Cardiac Panel: Troponin I 6 ng/L (<or=51) 04/20/24 NT-Pro-B Natriuret Pep 462 pg/mL (<300) H 04/20/24 Arterial Blood Gas: No Data to Display Venous Blood Gas: Venous Blood pH 7.43 (7.31-7.41) H 04/20/24 20:50 Venous Blood Partial Pressure O2 59 mmHg 04/20/24 20:50 Venous Blood Partial Pressure CO2 36 mmHg (41-51) L 04/20/24 20 :50 Venous Blood Oxygen Saturation 91 % 04/20/24 20:50 Venous Blood HCO3 24 mmol/L (23-28) 04/20/24 20:50 Venous Blood Base Excess 0 mmol/L (-2-3) 04/20/24 20:50 Venous Blood Total Carbon Dioxide 22 mmol/L (24-29) L 04/20/24 20:50 Pancreas Panel: Lipase 44 U/L 04/20/24 16:22 Thyroid Panel: Thyroid Stimulating Hormone (TSH) 1.99 uIU/mL (0.36-3.74) 04/16 11:28 Infectious Disease: Coronavirus (COVID-19)(PCR) Negative 04/20/24 16:52 Coronavirus 2019 Source Nasopharynx 04/20/24 16:52 Influenza Virus Type A (PCR) Negative 04/20/24 16:52 Influenza Virus Type B (PCR) Negative 04/20/24 16:52 Respiratory Syncytial Virus (PCR) Negative 04/20/24 16:52 Blood Cultures: No Data to Display Toxicology Panel: No Data to Display Imaging and Studies Imaging and Studies Study information below may be from another EMR and interpreted by another provider. Please see original notes in EMR for more complete details. EKG Summary: 04/20/24: Exam: Resting ECG Reason for Exam: weakness Patient Location: E HR:120 bpm ECG Measurements Heart Rate 120 AXIS ME 116 P 59 QRSd 73 QRS 30 QT 286 T48 QTc 404 Conclusion Sinus tachycardia...rate> 99 Ventricular premature complex...V complex w/ short R-R interval Low voltage, precordial leads...precordial leads <1.0mV no ST segment or T wave abnormalities to suggest occlusive [place] I have reviewed and I agree with the emergency room physician's ECG interpre tation. Anesthesia Assessment and Plan Anesthesia History Personal History: No History of Anesthesia Complications Family History: No Family History of Anesthesia Complications Exercise Tolerance Exercise Tolerance: Metabolic Equivalents>4 Cardiac & Pulmonary Exam Cardiac Exam: Normal S1/S2 Heart Sounds Pulmonary Exam: Other (Diminished) Implantable Cardiac Device Does patient have a Pacemaker or an ICD?: No Airway Exam Known Difficult Airway: No Mallampati Class: 2 Mouth Opening: Normal (> 3cm) Thyromental Distance: Greater than 3 cm Neck Range of Motion: Full ROM Neck Circumference: Normal Teeth Condition: Normal Dentition ASA Classification ASA Score: ASA 4 Emergency Case?: No NPO Status NPO Status: NPO Clears >2 hours, Solids >8 hours Anesthesia Plan Resuscitation Status: DNR Modified During Perioperative Period Resuscitation Modifications: CPR Refused, Defibrillation Refused and Pt. Requests for Clinical Judgement to be Used Anesthesia Technique: MAC Anesthesia Airway Planned: Natural Airway Monitors Used: Standard Monitors
[2024-05-01] MEDS: Normal Saline Flush 10 ML SYR IV ×2 (13:38→18:05)
[2024-05-01 13:51] VITALS: BMI 16.9
[2024-05-01] MEDS: Lactated Ringers 1,000 ML 30 ML IV (14:49)
[2024-05-01] MEDS: ceFAZolin 1 GM/50 ML BAG IVPB (14:49)
[2024-05-01 15:43] VITALS: BP 137/70; PULSE 115; RESP 16; TEMP 35.8; O2SAT 94
--- NOTE | 2024-05-01 16:06 | W.ANESPOSTOP ---
Postoperative Evaluation Date, Time and Location Date Performed: 05/01/24 Time Performed: 15:43 Patient Location: Day Surgery Unit Vital Signs Most Recent Imported Vital Signs: Most Recent Vital Signs Temp Pulse Resp BP Pulse Ox 35.8 C L 115 H 16 137/70 94 05/01/24 15:43 05/01/24 15:43 05/01/24 15:43 05/01/24 15:43 05/01/24 15:43 Assessment Mental Status: Arousable with meaningful communication Airway and Respiratory Function: Patent airway with normal (patient baseline) respiratory exam Cardiovascular Function: Hemodynamically Stable Hydration Status: Adequately Hydrated (patient baseline) Nausea & Vomiting: No Nausea or Vomiting Pain: Pt. Denies Any Pain Peripheral Nerve Block: Patient did not receive a nerve block
[2024-05-01 16:25] VITALS: BP 129/64; PULSE 116; RESP 20; TEMP 36.3; O2SAT 99
[2024-05-01 16:35] VITALS: O2SAT 95
--- NOTE | 2024-05-01 17:02 | W.PM.DSUDISC ---
Date of service: 05/01/24 Discharge Plan Disposition Patient Disposition: Home Condition: Poor Discharge Details Reason For Visit: Attempted placement of PleuRx catheter Attending Provider: Kandi Hampton Primary Care Provider: Maurizio Alfaro Home Meds and New Rx's Prescriptions: Continued morphine concentrate 100 mg/5 mL (20 mg/mL) solution 5 - 10 mg PO Q1H PRN MDD 12 mL PRN (Reason: SOB or pain) Qty: 30 0RF Rx Instructions: For SOB or pain acetaminophen 650 mg suppository 650 mg [place] Q6H PRN (Reason: fever, mild pain) Qty: 6 0RF Rx Instructions: Hospice Patient hyoscyamine sulfate 0.125 mg tablet,disintegrating 0.125 - 0.25 mg PO Q4H PRN (Reason: secretions) Qty: 24 0RF Rx Instructions: Hospice Patient haloperidol lactate 2 mg/mL concentrate 1 mg PO Q6H PRN (Reason: agitation) Qty: 15 0RF Rx Instructions: Hospice Patient lorazepam 1 mg tablet 1 mg PO Q4H PRN (Reason: anxiety, ANDREWS or nausea) Qty: 6 5RF Rx Instructions: Hospice Patient morphine concentrate 100 mg/5 mL (20 mg/mL) solution 5 - 20 mg PO Q1H PRN MDD 5 mL PRN (Reason: moderate to severe pain or shortness of breath) Qty: 30 0RF Rx Instructions: Hospice Patient prochlorperazine maleate 10 mg tablet 10 mg PO Q6H PRN (Reason: nausea and vomiting) Qty: 6 0RF Rx Instructions: Hospice Patient bisacodyl [Dulcolax (bisacodyl)] 10 mg suppository 10 mg [place] daily PRN (Reason: constipation) Qty: 2 0RF Rx Instructions: Hospice Patient Insert 1 supp [place] Daily PRN constipation (no BM in 3 days) acetaminophen [Aminofen] 325 mg tablet 325 mg PO Q8H PRN PRN Patient Comments: max dose 3000mg magnesium oxide 400 mg magnesium capsule 400 mg PO BID famotidine 40 mg tablet 40 mg PO QHS fluticasone propionate [24 Hour Allergy Relief] 50 mcg/actuation spray,suspension 2 spray intranasal DAILY PRN Rx Instructions: administer into each nostril Incruse Ellipta 62.5 mcg/actuation blister with device 1 inh inhalation DAILY albuterol sulfate 90 mcg/actuation aerosol powdr breath activated 2 inh inhalation Q6H hydrocodone-acetaminophen 5-325 mg tablet 1 tab PO BID ondansetron 4 mg tablet,disintegrating 4 mg PO Q8H PRNQty: 30 0RF sennosides-docusate sodium [Senna with Docusate Sodium] 8.6-50 mg tablet 1 tab-cap PO BID Qty: 60 2RF Rx Instructions: to avoid constipation with opiate pain medication Discharge Instructions Additional Instructions: remove band aid in am wash left chest w/ soap and water care per hospices Activity:: Activity as Tolerated Remove Dressings/Wound Care:: 24 hours Shower/Bathe:: 24 hours Diet:: As Tolerated DS: Diagnosis Discharge Diagnosis (1) Protein-calorie malnutrition, severe: Status: Acute (2) 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: Status: Chronic (3) Pathologic fracture: Status: Acute (4) COPD (chronic obstructive pulmonary disease): Status: Chronic (5) Malignant pleural effusion: Status: Acute (6) Ambulatory dysfunction: Status: Acute (7) Cancer cachexia: Status: Acute (8) Tobacco abuse, in remission:
--- NOTE | 2024-05-01 17:15 | DI.RAD_ITS ---
Exam(s) XR PORTABLE CHEST AP EXAM: XR PORTABLE CHEST AP CLINICAL HISTORY: change of condition postop TECHNIQUE: 2D digital imaging was performed. COMPARISON: CT CT CHEST PE ABD PELVIS W from 04/20/2024 CR XR PORTABLE CHEST AP POST LINE from 04/21/2024 CR XR PORTABLE CHEST AP from 05/01/2024 FINDINGS: Exam is again limited by under penetration at the left lung base. LUNGS: Confluent masses along the left lateral chest are again noted. Mild blunting at the left cost ophrenic angle. No new findings. HEART: Normal size. AORTA: Normal diameter. BONES: Unremarkable for age. Soft tissues: Unremarkable. IMPRESSION: No acute findings. DATA REPOSITORY: RADIATION DOSE DELIVERED:
[2024-05-01 17:35] VITALS: PULSE 125; RESP 26; O2SAT 90
--- NOTE | 2024-05-01 17:42 | ROE_ITS ---
Operative Note Operative Note PRE-OP DIAGNOSIS: malig pleural effusions POST-OP DIAGNOSIS: same PROCEDURE: attempted pleurX cath SURGEON: Kandi Hampton ANESTHESIA TYPE: Local By Surgeon and MAC Refer to Anesthesia Record ESTIMATED BLOOD LOSS: 1 PATHOLOGY: none sent COMPLICATIONS: None Patient was transported to: same day Patient's condition: stable Procedure Description: Pt has widely metastatic kidney cancer, and has a very poor functional status. She has recurrent malignant effusion and is here today for insertion of a left pleuRx catheter. Informed consent is explained to the pt and daughter: risks: bleeding,infection (which may require removal of the catheter) damage to lung/blood vessels, PTX, and reaction to medications. Pt is than brought to the operating room and placed in the supine position. T zenon out is performed. She did receive IV abx. The correct side is ensured and had been marked previously in preop. A US is used to locate the fluid and the site is marked. The area is prepared and draped in the usual sterile manner. Pt is extremely thin. Unfortunately, the anterior positioning of the catheter would almost go through her breast tissue. !% lidocaine is used for local. I do have a difficult time accessing the fluid collection in the chest noted on US. I am unable to aspirate fluid. I think s this is one of the loculated collections. when I do insert the access catheter ( after aspirating air), I cannot feed the guidewire. After mult attempts, the procedure was abandoned. I am also hampered by very small intercostal size and possible from the tumor itself. Sterile dressing is applies. -d/w findings and why I was nor able to place the catheter. If she develops recurrent effusions, I am willing to go out and do a thorocentisis at her home. -pt did sustain a <2% PTX. Repeat CXR show almost complete resolution. If pt gets SOB or chest pain return to ED. Pt just wants to go home currently. Pt is being enrolled in hospice in the am. Date of Procedure: 05/01/24
[2024-05-01] MEDS: Scopolamine 1 MG/3 DAYS PATCH TD (18:05)
[2024-05-01] MEDS: MORPHine 10 MG/ML VIAL 2 MG IVP (18:05)
== END 2024-05-01 18:15 | disposition home or self-care (01) ==
PROVIDERS: PCP Nurse Practitioner Family; Visit Provider Surgery
PROC: (CPT 32550; principal; 2024-05-01 13:00)
DX: C64.1 Malignant neoplasm of right kidney, except renal pelvis (principal); Z53.8 Procedure and treatment not carried out for other reasons; J91.0 Malignant pleural effusion; E43 Unspecified severe protein-calorie malnutrition
CPT/HCPCS: 32550; 71045; J0690; J2250; J2270; J3010